=== PATIENT | male | born 1950 | race Caucasian/White ===

== ENCOUNTER 2024-04-12 11:48 | Inpatient (IN) | payer MEDICARE, SELFPAY ==
[2024-04-07] VITALS (11 sets, daily range): BP systolic 145–197; BP diastolic 92–110; BMI 34.7; BMI 34.9
--- NOTE | 2024-04-07 12:01 | ED.GENMED ---
History of Present Illness
General
Chief Complaint: Abnormal Lab Value
Source: patient
Exam Limitations: none
Time Seen by Provider: 04/07/24 11:36
Nursing documentation reviewed up to this point in time: agreed with
History of Present Illness
History of Present Illness:
73 y/o M with h/o htn, hld, prostate ca s/p radiation 5 yeras ago
here with abnormal labs
Patient had routine blood work in July 2023 showing a creatinine of 1.49. He went for routine blood work 6 days ago to prepare for a upcoming annual visit and his creatinine resulted at 3.28. Patient says he believes he is voiding
appropriately, he does have frequency but that is been common since his surgery. he apparently has been seen by dr. goodwin for trouble draining the bladder, maybe a stricture or somethign? but he did not have any treatment
pt says he has been ahving urinary frequency for while but he feels that he does empty his bladder
he has no pain
no confusoin, fever, fatigue, weakness, vomting, nauesa, diarrhea
is eating/drinking normaloly
pcp sent him in for w/.u
stopped his HCTZ
Past History
Past History
ED Past Medical History: Other
ED Past Surgical History: Other
Social History
Tobacco: Other
Alcohol: Other
Drug: Other
Personal: Other
Employment: Other
Family History
Family History: Unable to obtain
Review of Systems
Review of Systems
Allergies reviewed?: Yes
All Other Systems: Not applicable
Phy Exam
Physical Exam
Physical Exam:
GENERAL: Alert , in no apparent distress
EYE: pupils equal and reactive
NECK: Supple
ENT: o/p clr, mmm.
CARDIAC: Regular rate and rhythm . mild b/l ankle edema, nonpitting
LUNGS: Clear breath sounds bilaterally, no acute respiratory distress, no wheezes/rales/rhonchi
ABDOMEN: Soft, without focal tenderness, no r/g, no cvat, normal bowel sounds
NEUROLOGICAL: Alert and oriented, no focal neuro deficits
SKIN: Warm and dry, skin intact.
MUSCULOSKELETAL: mild edema, well perfused. neg syeda's sign
PSYCH: Normal and appropriate interaction.
Course
Orders/Labs/Results
Orders:
Orders
04/07/24 12:01
Electrocardiogram (*1) Urgent
Reason for Study: Other
Other Reason for Exam: arf
EKG- Treatment ONCE
04/07/24 12:02
CT Abd/pel Without Iv Or Oral Urgent
Comment:
Reason For Exam: ARF, h/o prostate cancer
04/07/24 12:08
BNP [NT-proBNP] Urgent
Complete Blood Count/With Diff Urgent
Comprehensive Metabolic Panel Urgent
04/07/24 13:05
Spence Placement- Treatment ONCE
Reason for insertion: Acute Kidney Injury
04/07/24 13:59
UA Reflex to Culture [Urinalysis Reflex To Culture] Urgent
Date Specimen was Collected: 04/07/24
Time Specimen was Collected: 13:58
Urine Microscopic Reflex Cult Urgent
Urine Culture Urgent
AMA Source: U
Specimen Description:
Date Specimen was Collected: 04/07/24
Time Specimen was Collected: 13:58
04/07/24 15:07
HydrALAZINE [Apresoline] 10 mg IV NOW STA
04/07/24 15:52
UROLOGY CONSULT Routine
Consulting Provider: Ricky Patino
Was physician already notified: Yes
Comment: Sees [facility] out[facility], DAVID, obstruction
04/07/24 15:56
Admit/Transfer Patient As Directed
Co-Sign Provider:
Level of Care: Observation services
Assign to:: Telemetry
Physician / Group: Dr. Joe Radha/Hospitalists
Diagnosis: Acute Kidney Injury, Urinary Obstruction
Reason for Telemetry: Arrhythmia
Date to Stop Telemetry: 04/10/24
Time to Stop Telemetry: 11:00
PRN Pain Medication Management As Directed
May give lesser potent ordered pain med per pt: Yes
preference::
Protocol:: Medication orders for pain may be administered in a
manner that supports deferring to patient preference
when the pt is:
- Requesting an ordered lesser potent pain medication.
Least to most potent pain medications are defined
as: acetaminophen < NSAID < tramadol < opioids
(morphine, oxycodone, hydromorphone).
- Requesting a lesser dose of the same medication IF
ORDERED.
- Requesting a less intrusive route of administration
if both routes are prescribed by the provider (PO <
IV).
04/07/24 15:57
Code Status As Directed
Resuscitation Status: Full Code
04/07/24 16:50
Blood Culture Urgent
AMA Source: Blood/Venous
Specimen Description:
04/10/24 11:00
DC Protocol for Telemetry ONCE
Abnormal Lab Results
04/07/24 04/07/24
12:08 13:59
RBC 3.44 L 10^6/uL
(4.70-6.10)
Hgb 11.0 L g/dL
(13.0-18.0)
Hct 32.1 L %
(39.0-52.0)
MCH 32.0 H pg
(27.0-31.0)
Absolute Lymphs (auto) 0.7 L 10^3/uL
(1.2-3.4)
Absolute Monos (auto) 0.7 H 10^3/uL
(0.1-0.6)
Lymphocytes % 12.2 L %
(20.5-51.1)
Monocytes % 11.2 H %
(1.7-9.3)
BUN 58 H mg/dl
(9-20)
Creatinine 3.2 H mg/dL
(0.7-1.3)
Ur Occult Blood Reflex Trace A
(Negative)
Leukocyte Esterase Rfl 2+ A
(Negative)
Urine WBC (Reflex) 30-40 A /HPF
(0-5)
Urine Bacteria (Reflex) Few A
(Negative)
04/07/24 12:08
04/07/24 12:08
Vital Signs
Initial and Last Documented VS:
Initial Vital Signs
Temp Pulse Resp BP Pulse Ox
98.4 F 52 18 197/109 99
04/07/24 11:07 04/07/24 11:07 04/07/24 11:07 04/07/24 11:07 04/07/24 11:07
Last Documented Vital Signs
Temp Pulse Resp BP Pulse Ox
98.4 F 70 22 179/99 99
04/07/24 11:07 04/07/24 16:30 04/07/24 16:30 04/07/24 16:00 04/07/24 16:30
MDM/Problems Addressed
Differential Diagnosis Includes:
arf, bladder outlet obstruction/urinary retention, uti, hydro,
MDM/Problems Addressed:
mohit lei 73 y/o M treated with radiation for prostate ca 5 years ago or so
here with renal failure; cr in 07/2023 was 1.4, today is 3.2
still waiting on urine for PVR; ct shows mod bilateral hydronephrosis and ureter with distended bldder which is thickened and with a large bladder diverticulum;
spence placed
urology aware;
*Critical Care Note
Total Time (30-74mins, 75-104mins- exclusive of procedures): Not Applicable
ED Attending Note
-
Portions of this chart may have been created with voice recognition software.� Occasional wrong word or��sound alike� substitutions may have occurred due to the inherent limitations of voice recognition software.
Discharge Plan
Departure
Patient Disposition: Admit
Date of Disposition: 04/07/24
Time of Disposition: 13:03
Admit to: Med/Surg
Presentation/result/management discussed w/ accepting MD/DO: Hospitalist
Condition: Good
Covid-19: Not Applicable
Discharge Problem:
Acute renal failure
Interventions
Interventions:
*Risk Screen - Suicide Last Done: 04/07/24 11:07
*General Assessment Last Done: 04/07/24 11:07
*Neglect/Abuse Screening Last Done: 04/07/24 11:07
ED- Fall Risk Assessment Last Done: 04/07/24 11:55
*ED COVID-19 Vaccine History Last Done: 04/07/24 11:55
*Nursing Disposition Last Done: 04/07/24 17:16
Discharge Date and Time
Discharge Date/Time: 04/07/24 17:17
[2024-04-07 12:31] LABS: % Basophils 0.8 % (0-2); % Eosinophils 2.5 % (0-6); % Immature Granulocytes 0.3 % (0-0.5); % Lymphocytes 12.2 % (20.5-51.1); % Monocytes 11.2 % (1.7-9.3); Absolute Basophils 0.1 10^3/uL (0-0.2); Absolute Eosinophils 0.2 10^3/uL (0-0.7); Absolute Lymphocytes 0.7 10^3/uL (1.2-3.4); Absolute Monocytes 0.7 10^3/uL (0.1-0.6); Absolute Neutrophils 4.4 10^3/uL (1.4-6.5); Hematocrit 32.1 % (39.0-52.0); Mean Corp Hgb Conc. 34.3 g/dL (33.0-37.0); Mean Corpuscular Volume 93.3 fL (80.0-94.0); Mean Platelet Volume 10.1 fL (7.4-10.4); Nucleated Red Blood Cells % 0 % (-); Platelet Count 223 10^3/uL (130-400); Red Blood Cell Count 3.44 10^6/uL (4.70-6.10); Red Cell Dist. Width 13.2 % (11.5-14.5); White Blood Cell Count 6.1 10^3/uL (4.8-10.8)
[2024-04-07 12:40] LABS: ALT (SGPT) 13 U/L (0-50); AST (SGOT) 22 U/L (17-59); Albumin 4.2 g/dl (3.5-5.0); Alkaline Phosphatase 67 U/L (38-126); Blood Urea Nitrogen 58 mg/dl (9-20); Calcium 9.4 mg/dl (8.4-10.2); Carbon Dioxide 27 mmol/L (22-30); Chloride 106 mmol/L (98-107); Estimated Creatinine Clearance 23 ml/min; Glucose 98 mg/dl (70-99); Potassium 4.6 mmol/L (3.5-5.1); Sodium 139 mmol/L (135-145); Total Bilirubin 0.4 mg/dl (0.2-1.3); Total Protein 6.4 g/dl (6.3-8.2); eGFR 19.68
[2024-04-07 12:49] LABS: NT-proBNP 1190 pg/ml
[2024-04-07 15:10] LABS: Urine Albumin Negative (Neg - Trace); Urine Bilirubin Negative (Negative); Urine Character Clear (Clear); Urine Color Yellow; Urine Glucose Negative (Negative); Urine Ketone Negative (Negative); Urine Leukocyte 2+ (Negative); Urine Nitrite Negative (Negative); Urine Occult Blood Trace (Negative); Urine Urobilinogen Negative (Neg - 1+)
--- NOTE | 2024-04-07 15:37 | HPS.HSE ---
Family Physician
-
Family Physician: Boy Richardson
Chief Complaint
-
Worsening renal function on outpatient labwork
History of Present Illness
73 y/o male with past medical history of hypertension, hyperlipidemia, stroke in 2016, prostate cancer 5 years ago (follows with urologist Dr. Moreno), presented after worsening renal function on his labwork. Patient went for routine blood work
several days ago to prepare for a upcoming annual visit and his creatinine resulted at 3.28. Patient says he believes he is voiding appropriately, he does have frequency and no new symptoms. His daughter was present in the room and said patient had
chronic shortness of breath on exertion and chronic lower extremity edema. He denied any fever or chills or abdominal pain.
Medical History
Past Medical History
Past Medical History: Reports Other (As per HPI above)
Past Surgical History: Reports Other
Social History
Tobacco: Former Smoker
Alcohol: Daily
Drug: None
Family History
Family History: Hypertension
Allergies / Home Medications
Allergies reflects when Allergies were last updated in [employer].
Home Medications with original date entered in [employer]
Allergy/Medication List:
Allergies
Allergy/AdvReac Type Severity Reaction Status Date / Time
No Known Allergies Allergy Verified 04/07/24 11:06
Home Medications
metoprolol succinate 25 mg tablet,extended release 24 hr (Toprol XL) 25 mg PO DAILY 04/07/24
red yeast rice 600 mg tablet 1,200 mg PO BID 04/07/24
Review of Systems
-
A 12 point ROS was completed and negative except as noted: Yes
Physical Exam
Vital Signs
Vital Signs
Temp Pulse Resp BP Pulse Ox
98.4 F 53 18 180/92 98
04/07/24 11:07 04/07/24 14:00 04/07/24 14:00 04/07/24 14:00 04/07/24 14:00
Physical Exam
General: No Apparent Distress and Conversant
HEENT: NormoCephalic and Moist mucous membranes
Respiratory: Clear
Cardiac: S1/S2 and Regular Rhythm
GI: Soft and Non Tender
Genito-urinary: Brunner
Musculoskeletal: Edema, Left Lower Extremity and Edema, Right Lower Extremity
Skin: Warm and Dry
Neuro: Awake, Alert and AO x 3
Psych: Calm and Intact Judgment/Insight
Laboratory Results
-
04/07/24 12:08
04/07/24 12:08
Laboratory Results
Total Bilirubin 0.4 mg/dl (0.2-1.3) 04/07/24 12:08
AST 22 U/L (17-59) 04/07/24 12:08
ALT 13 U/L (0-50) 04/07/24 12:08
Alkaline Phosphatase 67 U/L (38-126) 04/07/24 12:08
Impression/Plan
-
Assessment/Plan
Acute Kidney Injury, Secondary to Obstruction
Bilateral hydronephrosis and hydroureter with significantly distended urinary bladder
Thickened and trabeculated bladder with large posterior bladder diverticulum
Prostate cancer 5 years ago (follows with urologist Dr. Moreno)
-Continue Brunner Catheter
-Consult urology, recommendations appreciated
-Consult nephrology, recommendations appreciated
-No leukocytosis or fever, monitor for any signs of infection in which case Rocephin can be started
-Bladder scans protocol
-AM labs
Hypertension
-Continue home Metoprolol Succinate
-Add Amlodipine
-Per patient's daughter, patient was noted to be on Enalapril Maleate 20 mg BID and HCTZ 25 mg daily (stopped) at home
-Hold Enalapril for now
Bilateral Lower Extremity Edema
-Albumin okay
-Will check lower extremity duplex
-Given SOB reported will check echo
Hyperlipidemia
Stroke in 2016
Prostate cancer 5 years ago (follows with urologist Dr. Moreno)
Alcohol Use
-MSAS protocol
DVT PPx: Heparin Subq
Code Status: Full Code
[2024-04-07 15:42] LABS: Urine Bacteria Few (Negative); Urine Red Blood Cell 0-2 /HPF (0-2); Urine Squamous Cell 0-2 /LPF (Few); Urine White Cell 30-40 /HPF (0-5)
[2024-04-07] MEDS: APRESOLINE 10 MG IV (15:43)
--- NOTE | 2024-04-07 17:56 | W.PN.URO.CBU ---
Today's Communication / Plan
-
Keep Brunner
Follow BMP
Patient with benefit from videourodynamics +/- repeat cystsocopy as outpatient
Have advised patient and family he will be discharged home with his Brunner
Assessment / Plan
-
DAVID
Probable obstructive uropathy
Urine incontinence
Bladdder diverticulum
Prostate cancer
Diagnosis
-
Date of Service: April 07, 2024
-
Patient Diagnosis:
DAVID likely due to obstructive uropathy: 1.1 liters of urine recovered from bladder when catheter was initially placed, with an additional 900 ml recovered shortly thereafter: Creatinine 3.2 (no acidosis or hyperkalemia)
CT scan reveals a markedly distended urinary bladder with posterior diverticulum and marked bilateral hydroureteronephrosis
---
Urine incontinence: likely overflow
Cystoscopy 09/13 revealed a globally trabeculated urinary bladder. No clear evidnece of bladder outlet obstruction was evident ([facility])
---
Prostate cancer s/p radiation therapy roughly five years ago (this facility)
Subjective
-
Comfortable
Little catheter bother
Objective
-
Vital Signs
Temp Pulse Resp BP Pulse Ox
98.4 F 70 22 179/99 99
04/07/24 11:07 04/07/24 16:30 04/07/24 16:30 04/07/24 16:00 04/07/24 16:30
Intake and Output
04/06/24 04/07/24 04/08/24
06:59 06:59 06:59
Output Total 900 / 900
Balance -900 / -900
Output:
Urine, Brunner 900 / 900
Laboratory Results
04/07/24 12:08
04/07/24 12:08
CT scan reveals a markedly distended urinary bladder with bilateral hydroureteronephrosis: images personally reviewed
Review of Systems
-
Constitutional: No Symptoms
Respiratory: No Symptoms
Cardiac: No Symptoms
Abdomen/GI: No Symptoms
: Incontinence and Urgency
Neurological: No Symptoms
Physical Exam
-
General - well developed, well nourished, no acute distress
Abdomen - soft, non-tender, bladder non-palpable
Genitalia - normal with Brunner draining ovidio urine
Neuro - AOx3, no motor deficits
Counseling
-
Continue catheter drainage
Follow BMP
Re-image should DAVID not resolve
[2024-04-07] MEDS: NORVASC 5 MG PO (18:14)
[2024-04-07] MEDS: DETROL LA 4 MG PO (19:55)
[2024-04-07] MEDS: HEPARIN 5000 UNITS SC (19:55)
--- NOTE | 2024-04-07 21:30 | PTCARENOTE ---
Pt reports mild pain in his groin and difficulty sleeping. [facility] [employer] Negrete notified, order placed for 1x Tylenol 1000mg and 1x melatonin 5mg HS.
[2024-04-07] MEDS: TYLENOL 1000 MG PO (21:56)
[2024-04-07] MEDS: MELATONIN 5 MG PO (21:56)
[2024-04-08] VITALS (9 sets, daily range): BP systolic 122–155; BP diastolic 76–98; PULSE 59; O2SAT 97
[2024-04-08 08:10] LABS: % Basophils 0.6 % (0-2); % Immature Granulocytes 0.3 % (0-0.5); % Lymphocytes 10.7 % (20.5-51.1); % Monocytes 11.1 % (1.7-9.3); % Neutrophils 74.3 % (42.2-75.2); Absolute Eosinophils 0.2 10^3/uL (0-0.7); Absolute Lymphocytes 0.8 10^3/uL (1.2-3.4); Absolute Monocytes 0.8 10^3/uL (0.1-0.6); Absolute Neutrophils 5.4 10^3/uL (1.4-6.5); Hematocrit 33.1 % (39.0-52.0); Hemoglobin 11.5 g/dL (13.0-18.0); Mean Corp Hgb Conc. 34.7 g/dL (33.0-37.0); Mean Corpuscular Hgb 31.4 pg (27.0-31.0); Mean Corpuscular Volume 90.4 fL (80.0-94.0); Mean Platelet Volume 10.3 fL (7.4-10.4); Nucleated Red Blood Cells % 0 % (-); Platelet Count 243 10^3/uL (130-400); Red Blood Cell Count 3.66 10^6/uL (4.70-6.10); Red Cell Dist. Width 13.2 % (11.5-14.5); White Blood Cell Count 7.2 10^3/uL (4.8-10.8)
[2024-04-08] MEDS: NORVASC 5 MG PO (08:26)
[2024-04-08] MEDS: TOPROL XL 25 MG PO (08:26)
[2024-04-08] MEDS: DETROL LA 4 MG PO (08:26)
[2024-04-08] MEDS: HEPARIN 5000 UNITS SC ×2 (08:27→19:42)
[2024-04-08 08:43] LABS: Blood Urea Nitrogen 53 mg/dl (9-20); Calcium 9.3 mg/dl (8.4-10.2); Carbon Dioxide 25 mmol/L (22-30); Chloride 106 mmol/L (98-107); Estimated Creatinine Clearance 23 ml/min; Glucose 90 mg/dl (70-99); Magnesium 1.7 mg/dl (1.6-2.3); Potassium 4.2 mmol/L (3.5-5.1); Sodium 138 mmol/L (135-145); eGFR 20.44
--- NOTE | 2024-04-08 11:00 | W.PN.URO.CBU ---
Today's Communication / Plan
-
continue present care
Assessment / Plan
-
DAVID
Probable obstructive uropathy
Urine incontinence
Bladdder diverticulum
Prostate cancer spoke with daisy ernstxpalined creatinine and bladder waas hoping to see lower creatinine than 3.1 today but plan serial bmp friday but if crfeatine does not drop siignificamtly will need reimaging with u/s bladder/ renal
Diagnosis
-
Date of Service: April 08, 2024
-
Patient Diagnosis:
Post Op Day:
Patient Diagnosis:
DAVID likely due to obstructive uropathy: 1.1 liters of urine recovered from bladder when catheter was initially placed, with an additional 900 ml recovered shortly thereafter: Creatinine 3.2 (no acidosis or hyperkalemia)
CT scan reveals a markedly distended urinary bladder with posterior diverticulum and marked bilateral hydroureteronephrosis
---
Urine incontinence: likely overflow
Cystoscopy 09/13 revealed a globally trabeculated urinary bladder. No clear evidnece of bladder outlet obstruction was evident ([facility])
---
Prostate cancer s/p radiation therapy roughly five years ago (this facility)
Subjective
-
hematuria mild feels well
Objective
-
Vital Signs
Temp Pulse Resp BP Pulse Ox
97.8 F 61 18 146/81 98
04/08/24 10:26 04/08/24 10:26 04/08/24 10:26 04/08/24 10:26 04/08/24 10:26
Intake and Output
04/07/24 04/08/24 04/09/24
06:59 06:59 06:59
Intake Total 480 / 480
Output Total 3200 / 3200
Balance -2720 / -2720
Intake:
Oral fluids 480 / 480
Output:
Urine, Brunner 3200 / 3200
Laboratory Results
04/08/24 07:24
04/08/24 07:24
Review of Systems
-
: Bleeding
Musculoskeletal: Edema
Physical Exam
-
General - well developed, well nourished, no acute distress
Chest - clear bilaterally
Abdomen - soft, non-tender, positive bowel sounds, no CVAT, no incisional pain or distention
Genitalia - normal
Rectal - normal
Skin - warm & dry with no rash
Neuro - AOx3, no motor deficits
Extremities - no clubbing, no cyanosis, no edema
Incision - clean, dry
Dressing - clean, dry, intact
Care Review
Data Reviewed
Discussed with: Nursing and Family
CT Scan: Image Pers Reviewed
Ultrasound: Image Pers Reviewed
--- NOTE | 2024-04-08 11:42 | W.PN.HOSP.TC ---
Today's Communication/Plan
-
Continue Brunner Catheter
Nephrology consulted given minimal improvement in creatinine -- patient was taking Enalapril at home
Assessment / Plan
Assessment / Plan
Physical Exam
General: No Apparent Distress and Conversant
HEENT: Normocephalic
Respiratory: CTAB
Cardiac: S1/S2 and Regular Rhythm
GI: Soft and Non Tender. Positive bowel sounds.
Genito-urinary: Brunner
Musculoskeletal: Edema, Left Lower Extremity and Edema, Right Lower Extremity
Skin: Warm and Dry
Neuro: Awake, Alert and AO x 3
Psych: Calm and Intact Judgment/Insight

CT Abdomen Pelvis (as per radiologist's report)
IMPRESSION:
1. Moderate bilateral hydronephrosis and hydroureter with significantly distended urinary bladder which is thickened and trabeculated with large posterior bladder diverticulum. No obstructing stones or soft tissue lesions appreciated. Findings
consistent with bladder outlet obstruction.
2. Mildly enlarged prostate gland with projection of median lobe into the bladder base. No suspicious osteoblastic lesions appreciated. No pelvic lymphadenopathy.
3. Severe degenerative disc disease at L5-S1 with grade 1 anterolisthesis secondary to bilateral pars defects.
4. Additional findings above.
Echocardiogram (as per cardiology report)
CONCLUSIONS
Normal biventricular size and systolic function without regional wall motion
abnormality. Estimated LVEF 60-65%.
Moderate concentric left ventricular hypertrophy.
Mild aortic regurgitation.
Compared to 11/11/17: no significant change.

Assessment/Plan
Acute Kidney Injury, Secondary to Obstruction
Bilateral hydronephrosis and hydroureter with significantly distended urinary bladder
Thickened and trabeculated bladder with large posterior bladder diverticulum
Prostate cancer 5 years ago (follows with urologist Dr. Moreno)
-Continue Brunner Catheter
-Consult urology, recommendations appreciated
-Consult nephrology, recommendations appreciated
-No leukocytosis or fever, monitor for any signs of infection in which case Rocephin can be started
-Bladder scans protocol
-AM labs
-Consulted nephrology given lack of significant improvement in creatinine
Hypertension -- Blood Pressure Improved
-Continue home Metoprolol Succinate
-Add Amlodipine
-Per patient's daughter, patient was noted to be on Enalapril Maleate 20 mg BID and HCTZ 25 mg daily (stopped) at home
-Hold Enalapril for now
Bilateral Lower Extremity Edema
-Albumin okay
-No DVT
-Given SOB reported checked echocardiogram, results are above
Hyperlipidemia
Stroke in 2016
Prostate cancer 5 years ago (follows with urologist Dr. Moreno)
Alcohol Use
-MSAS protocol
Chronic moderate compression deformity of L1. Severe degenerative disc disease at L5-S1 secondary to bilateral pars defects. Grade 1 anterolisthesis
12 mm cyst within the inferior right lobe
DVT Prophylaxis: Heparin Subq
Code Status: Full Code
Anticipated Discharge: > 48 hours
Subjective/Interval History
-
Date of Service: April 08, 2024
Patient was seen and examined. He reported doing okay, denied any new symptoms or complaints.
Objective Data
-
Labs:
Laboratory Results
04/08/24
07:24
WBC 7.2
Hgb 11.5 L
Hct 33.1 L
Plt Count 243
Sodium 138
Potassium 4.2
Chloride 106
Carbon Dioxide 25
BUN 53 H
Creatinine 3.1 H
Glucose 90
Calcium 9.3
Vital Signs:
Vital Signs
Temp Pulse Resp BP Pulse Ox
97.8 F 61 18 146/81 98
04/08/24 10:26 04/08/24 10:26 04/08/24 10:26 04/08/24 10:26 04/08/24 10:26
I&O
04/07/24 04/08/24 04/09/24
06:59 06:59 06:59
Intake Total 480 / 480
Output Total 3200 / 3200
Balance -2720 / -2720
--- NOTE | 2024-04-08 11:56 | CM ---
Patient seen bedside with , initial assessment completed. Patient resides with in a two story home with a first floor set up, three steps to enter from back of house. Patient has a cane at home but reports he does not use it. Patient denies
VN or SNF in past. Patient reports he does not want VN. Patient confirms PCP Boy Richardson, pharmacy [facility], confirms prescription coverage. Patient denies food, housing/utility, transportation insecurities at home. DSOUZA reviewed, signed,
placed in chart. CM will continue to follow for all discharge planning needs.
Plan; home no needs, patient declining VN at this time.
--- NOTE | 2024-04-08 13:27 | W.CON.NEPH ---
Consultation
-
Date/Time Consultation Requested: April 08, 2024 11 AM
Date/Time Consultation Performed: April 08, 2024 1 PM
Requesting Provider: Dr. Garcia
Performing Provider: Dr. Baker
Reason for Consultation: DAVID
Medical History
-
Chief Complaint: DAVID
History of Present Illness:
This is a 73-year-old gentleman who has hypertension previously treated with metoprolol and enalapril. He has had no issues with these medications and his pressures have been stable. He does have hyperlipidemia though this is stable on red yeast
rice alone. He did have a history of prostate cancer 5 years ago but this is also been stable and followed by urology as an outpatient. He was last seen as an outpatient by Dr. Moreno in December. He had blood work just last with his
primary care physician and this showed a creatinine of 3.28 and for this he was sent to emergency room. In the emergency room he had a CAT scan which had shown severe bilateral hydronephrosis. A catheter was placed with return of 1.9 L of urine.
Today, his creatinine has remained elevated at 3.1 however and we are asked to assist with further management of his acute kidney injury. He says that he has had no issues with his medications including enalapril as an outpatient.
Past Medical History
Hypertension, prostate cancer, stroke, hyperlipidemia
Social History
Tobacco: Former Smoker
Alcohol: Daily
Family History
Family History: Not Pertinent
Allergies / Home Medications
Allergy/AdvReac Type Severity Reaction Status Date / Time
No Known Allergies Allergy Verified 04/07/24 11:06
�Medication �Instructions �Recorded �Confirmed �Type
metoprolol succinate 25 mg 25 mg PO DAILY Blood Pressure 04/07/24 04/07/24 History
tablet,extended release 24 hr
(Toprol XL)
red yeast rice 600 mg tablet 1,200 mg PO BID Supplement 04/07/24 04/07/24 History
Review of Systems
-
No chest pain or shortness of breath. No issues with urine output. No fever.
All other systems: Negative unless noted
Physical Exam
Vital Signs
Vital Signs
Temp Pulse Resp BP Pulse Ox
97.8 F 61 18 146/81 98
04/08/24 10:26 04/08/24 10:26 04/08/24 10:26 04/08/24 10:26 04/08/24 10:26
Lab Results
WBC 7.2 10^3/uL (4.8-10.8) 04/08/24 07:24
RBC 3.66 10^6/uL (4.70-6.10) L 04/08/24 07:24
Hgb 11.5 g/dL (13.0-18.0) L 04/08/24 07:24
Hct 33.1 % (39.0-52.0) L 04/08/24 07:24
Plt Count 243 10^3/uL (130-400) 04/08/24 07:24
Sodium 138 mmol/L (135-145) 04/08/24 07:24
Potassium 4.2 mmol/L (3.5-5.1) 04/08/24 07:24
Chloride 106 mmol/L (98-107) 04/08/24 07:24
Carbon Dioxide 25 mmol/L (22-30) 04/08/24 07:24
BUN 53 mg/dl (9-20) H 04/08/24 07:24
Creatinine 3.1 mg/dL (0.7-1.3) H 04/08/24 07:24
eGFR 20.44 04/08/24 07:24
Glucose 90 mg/dl (70-99) 04/08/24 07:24
Calcium 9.3 mg/dl (8.4-10.2) 04/08/24 07:24
Uul-A-Ixanvwtwnli Pept 1190 pg/ml 04/07/24 12:08
Albumin 4.2 g/dl (3.5-5.0) 04/07/24 12:08
Physical Exam
Patient is awake alert oriented and in no distress. Mood and affect were pleasant, insight and judgment were good. Pupils are equal round and reactive to light, extraocular movements are intact, sclera were anicteric. Hearing was normal, ears and
nose are intact. Oropharynx was clear. Neck was supple with trachea midline and no thyromegaly. Heart was regular rate and rhythm without rubs. Lower extremities without edema. Lungs were clear to auscultation bilaterally and with normal
excursion. Abdomen was soft, nontender, with normal active bowel sounds, and no hepatosplenomegaly. Skin was without rash and with normal turgor.
Data Reviewed
-
CT Scan: Report Reviewed by me (CT abdomen and pelvis without contrast on April 07, 2024 degenerative joint disease, bilateral hydronephrosis and hydroureter, large posterior bladder diverticulum)
Medical Tests (Nuc Med, Echo etc): Image Personally Visualized and interpreted (EKG on April 07, 2024 by my reading shows sinus bradycardia first-degree AV block) and Report Reviewed by me (Echocardiogram on April 08, 2024 shows ejection fraction 60%,
moderate concentric LVH)
Labs: Labs Reviewed by me (Hemoglobin 11.5, WBC 7.2, sodium 138, potassium 4.2, bicarbonate 25, BUN 53, creatinine 3.1, calcium 9.3)
Old Records: Reviewed (On August 02, 2024, creatinine 1.49)
Assessment/Plan
-
Assessment
Acute kidney injury
Urinary retention
Bilateral hydronephrosis
Hypertension
Traumatic gross hematuria
Plan
Follow BMP
Maintain Brunner
No MICHELLE inhibitors
Continue amlodipine and metoprolol for hypertension
It is entirely possible that the obstructive uropathy may have been present longer than felt. Therefore recovery after judaism of flow may be delayed due to either ATN or more severe renal injury.
--- NOTE | 2024-04-08 13:39 | PTCARENOTE ---
Spence teaching started with patient and . Verbal instruction provided with demonstration was able to demonstrate emptying spence independently. Will continue to document teaching.
[2024-04-08 14:26] LABS: Urine Sodium 88 mmol/L (30-90)
[2024-04-09 03:15] VITALS: BP 149/90
[2024-04-09 08:00] VITALS: BP 134/93
[2024-04-09 08:00] LABS: % Basophils 0.4 % (0-2); % Eosinophils 4.2 % (0-6); % Immature Granulocytes 0.4 % (0-0.5); % Lymphocytes 11.5 % (20.5-51.1); % Monocytes 12.3 % (1.7-9.3); % Neutrophils 71.2 % (42.2-75.2); Absolute Eosinophils 0.3 10^3/uL (0-0.7); Absolute Lymphocytes 0.9 10^3/uL (1.2-3.4); Absolute Neutrophils 5.7 10^3/uL (1.4-6.5); Hematocrit 34.4 % (39.0-52.0); Hemoglobin 11.9 g/dL (13.0-18.0); Mean Corp Hgb Conc. 34.6 g/dL (33.0-37.0); Mean Corpuscular Hgb 31.2 pg (27.0-31.0); Mean Corpuscular Volume 90.1 fL (80.0-94.0); Mean Platelet Volume 10.4 fL (7.4-10.4); Nucleated Red Blood Cells % 0 % (-); Platelet Count 251 10^3/uL (130-400); Red Blood Cell Count 3.82 10^6/uL (4.70-6.10); Red Cell Dist. Width 13.1 % (11.5-14.5)
[2024-04-09 08:20] LABS: Blood Urea Nitrogen 55 mg/dl (9-20); Calcium 9.4 mg/dl (8.4-10.2); Carbon Dioxide 23 mmol/L (22-30); Chloride 106 mmol/L (98-107); Estimated Creatinine Clearance 25 ml/min; Glucose 94 mg/dl (70-99); Potassium 4.3 mmol/L (3.5-5.1); Sodium 136 mmol/L (135-145); eGFR 22.15
[2024-04-09] MEDS: DETROL LA 4 MG PO (09:46)
[2024-04-09] MEDS: TOPROL XL 25 MG PO (09:46)
[2024-04-09] MEDS: HEPARIN 5000 UNITS SC ×2 (09:47→20:14)
[2024-04-09] MEDS: NORVASC 5 MG PO (09:47)
--- NOTE | 2024-04-09 10:45 | CM ---
Addendum entered by Kellie Sanchez 04/09/24 11:41:
Patient seen with , family agreeable to [facility] upon discharge. CM will update [facility] once patient is clear to discharge home.
Original Note:
Patient seen bedside, reports his will be in later this morning. CM faxed referral to [facility] ([phone]) for spence care. CM will continue to follow for all discharge planning needs.
Plan; home with VN.
--- NOTE | 2024-04-09 10:55 | W.PN.HOSP.TC ---
Today's Communication/Plan
-
Renal function very gradually improving -- appreciate urology and GI follow-up
Watch blood pressure and Hgb closely as patient is on Heparin DVT prophylaxis and Brunner is showing red urine
Assessment / Plan
Assessment / Plan
Physical Exam
General: No Apparent Distress and Conversant
HEENT: Normocephalic
Respiratory: CTAB
Cardiac: S1/S2 and Regular Rhythm
GI: Soft and Non Tender. Positive bowel sounds.
Genito-urinary: Brunner with red urine
Musculoskeletal: Edema, Left Lower Extremity and Edema, Right Lower Extremity
Skin: Warm and Dry
Neuro: Awake, Alert and AO x 3
Psych: Calm and Intact Judgment/Insight

CT Abdomen Pelvis (as per radiologist's report)
IMPRESSION:
1. Moderate bilateral hydronephrosis and hydroureter with significantly distended urinary bladder which is thickened and trabeculated with large posterior bladder diverticulum. No obstructing stones or soft tissue lesions appreciated. Findings
consistent with bladder outlet obstruction.
2. Mildly enlarged prostate gland with projection of median lobe into the bladder base. No suspicious osteoblastic lesions appreciated. No pelvic lymphadenopathy.
3. Severe degenerative disc disease at L5-S1 with grade 1 anterolisthesis secondary to bilateral pars defects.
4. Additional findings above.
Echocardiogram (as per cardiology report)
CONCLUSIONS
Normal biventricular size and systolic function without regional wall motion
abnormality. Estimated LVEF 60-65%.
Moderate concentric left ventricular hypertrophy.
Mild aortic regurgitation.
Compared to 11/11/17: no significant change.

Assessment/Plan
Acute Kidney Injury, Secondary to Obstruction
Bilateral hydronephrosis and hydroureter with significantly distended urinary bladder
Thickened and trabeculated bladder with large posterior bladder diverticulum
Prostate cancer 5 years ago (follows with urologist Dr. Moreno)
-Continue Brunner Catheter
-Consult urology, recommendations appreciated
-Consult nephrology, recommendations appreciated
-No leukocytosis or fever, monitor for any signs of infection in which case Rocephin can be started
-Bladder scans protocol
-AM labs
-Hold home Enalapril
-Consulted nephrology given lack of significant improvement in creatinine: it's entirely possible that the obstructive uropathy may have been present longer than felt and per nephrology therefore recovery after druze of flow may be delayed due
to either ATN or more severe renal injury
Hypertension -- Blood Pressure Improved
-Continue home Metoprolol Succinate
-Continue newly started Amlodipine
-Per patient's daughter, patient was noted to be on Enalapril Maleate 20 mg BID and HCTZ 25 mg daily (stopped) at home
-Hold Enalapril given impaired renal function
Bilateral Lower Extremity Edema
-Albumin okay
-No DVT
-Given SOB reported checked echocardiogram, results are above
Hyperlipidemia
Stroke in 2016
Prostate cancer 5 years ago (follows with urologist Dr. Moreno)
Alcohol Use
-MSAS protocol
Chronic moderate compression deformity of L1. Severe degenerative disc disease at L5-S1 secondary to bilateral pars defects. Grade 1 anterolisthesis
12 mm cyst within the inferior right lobe
DVT Prophylaxis: Heparin Subq
Code Status: Full Code
Anticipated Discharge: > 48 hours
Subjective/Interval History
-
Date of Service: April 09, 2024
Patient was seen and examined. He denied any new symptoms or complaints.
Objective Data
-
Labs:
Laboratory Results
04/09/24
07:25
WBC 8.0
Hgb 11.9 L
Hct 34.4 L
Plt Count 251
Sodium 136
Potassium 4.3
Chloride 106
Carbon Dioxide 23
BUN 55 H
Creatinine 2.9 H
Glucose 94
Calcium 9.4
Vital Signs:
Vital Signs
Temp Pulse Resp BP Pulse Ox
97.8 F 69 20 134/93 98
04/09/24 08:00 04/09/24 08:00 04/09/24 08:00 04/09/24 08:00 04/09/24 08:00
I&O
04/08/24 04/09/24 04/10/24
06:59 06:59 06:59
Intake Total 480 / 480 540 / 540
Output Total 3200 / 3200
Balance -2720 / -2720 540 / 540
[2024-04-09 11:04] VITALS: BP 143/92
--- NOTE | 2024-04-09 13:11 | W.PN.URO.CBU ---
Today's Communication / Plan
-
renal u/s ordered
Assessment / Plan
-
DAVID
Probable obstructive uropathy
Urine incontinence
Bladdder diverticulum
Prostate cancer spoke with daisy rodriguezined creatinine and bladder waas hoping to see lower creatinine than 32.9 today but plan serial bmp friday but if crfeatine does not drop siignificamtly will need reimaging with u/s renal
Diagnosis
-
Date of Service: April 09, 2024
-
Patient Diagnosis:
Post Op Day:
Patient Diagnosis:
Post Op Day:
Patient Diagnosis:
DAVID likely due to obstructive uropathy: 1.1 liters of urine recovered from bladder when catheter was initially placed, with an additional 900 ml recovered shortly thereafter: Creatinine 3.2 (no acidosis or hyperkalemia)
CT scan reveals a markedly distended urinary bladder with posterior diverticulum and marked bilateral hydroureteronephrosis
---
Urine incontinence: likely overflow
Cystoscopy 09/13 revealed a globally trabeculated urinary bladder. No clear evidnece of bladder outlet obstruction was evident (Flashner)
---
Prostate cancer s/p radiation therapy roughly five years ago (this facility)
Subjective
-
feels well
Objective
-
Vital Signs
Temp Pulse Resp BP Pulse Ox
97.8 F 69 20 134/93 98
04/09/24 08:00 04/09/24 08:00 04/09/24 08:00 04/09/24 08:00 04/09/24 08:00
Intake and Output
04/08/24 04/09/24 04/10/24
06:59 06:59 06:59
Intake Total 480 / 480 540 / 540
Output Total 3200 / 3200
Balance -2720 / -2720 540 / 540
Intake:
Oral fluids 480 / 480 540 / 540
Output:
Urine, Brunner 3200 / 3200
Laboratory Results
04/09/24 07:25
Review of Systems
-
: Difficulty Voiding
Physical Exam
-
General - well developed, well nourished, no acute distress
Chest - clear bilaterally
Abdomen - soft, non-tender, positive bowel sounds, no CVAT, no incisional pain or distention
Genitalia - normal
Rectal - normal
Skin - warm & dry with no rash
Neuro - AOx3, no motor deficits
Extremities - no clubbing, no cyanosis, no edema
Incision - clean, dry
Dressing - clean, dry, intact
Care Review
Data Reviewed
Discussed with: Family
[2024-04-09 15:00] VITALS: BP 159/89
--- NOTE | 2024-04-09 15:18 | W.PN.UPDATE ---
Update Note
Progress Note Update
Patient gone for renal ultrasound
spoke to patient's and daughter
we will await further imaging from uro
discussed that his renal recovery is slower than anticipated
[2024-04-09] MEDS: MIRALAX PO (16:27)
[2024-04-09] MEDS: TYLENOL 650 MG PO ×2 (16:35→22:40)
[2024-04-09 19:05] VITALS: BP 141/84
[2024-04-09 20:06] LABS: Hematocrit 32.5 % (39.0-52.0); Hemoglobin 11.6 g/dL (13.0-18.0)
[2024-04-09 23:00] VITALS: BP 136/90
[2024-04-10 03:00] VITALS: BP 145/94
[2024-04-10 07:36] VITALS: BP 165/94
[2024-04-10 09:05] LABS: % Basophils 0.7 % (0-2); % Eosinophils 6.4 % (0-6); % Immature Granulocytes 0.3 % (0-0.5); % Lymphocytes 11.2 % (20.5-51.1); % Monocytes 10.6 % (1.7-9.3); % Neutrophils 70.8 % (42.2-75.2); Absolute Basophils 0.1 10^3/uL (0-0.2); Absolute Eosinophils 0.5 10^3/uL (0-0.7); Absolute Lymphocytes 0.8 10^3/uL (1.2-3.4); Absolute Monocytes 0.8 10^3/uL (0.1-0.6); Absolute Neutrophils 5.2 10^3/uL (1.4-6.5); Hematocrit 35.7 % (39.0-52.0); Hemoglobin 12.6 g/dL (13.0-18.0); Mean Corp Hgb Conc. 35.3 g/dL (33.0-37.0); Mean Corpuscular Hgb 31.7 pg (27.0-31.0); Mean Corpuscular Volume 89.7 fL (80.0-94.0); Nucleated Red Blood Cells % 0 % (-); Red Blood Cell Count 3.98 10^6/uL (4.70-6.10); Red Cell Dist. Width 12.8 % (11.5-14.5); White Blood Cell Count 7.4 10^3/uL (4.8-10.8)
[2024-04-10 09:35] LABS: Blood Urea Nitrogen 57 mg/dl (9-20); Calcium 9.7 mg/dl (8.4-10.2); Carbon Dioxide 23 mmol/L (22-30); Chloride 104 mmol/L (98-107); Estimated Creatinine Clearance 27 ml/min; Glucose 97 mg/dl (70-99); Potassium 4.6 mmol/L (3.5-5.1); Sodium 137 mmol/L (135-145); eGFR 24.13
[2024-04-10] MEDS: TYLENOL 650 MG PO ×3 (10:29→22:06)
[2024-04-10] MEDS: MIRALAX PO (10:30)
--- NOTE | 2024-04-10 10:30 | W.PN.HOSP.TC ---
Today's Communication/Plan
-
Renal function gradually improving still in the high 2 range
Appreciate nephrology and urology follow-up
Assessment / Plan
Assessment / Plan
Physical Exam
General: No Apparent Distress and Conversant
HEENT: Normocephalic
Respiratory: CTAB
Cardiac: S1/S2 and Regular Rhythm
GI: Soft and Non Tender. Positive bowel sounds.
Genito-urinary: Brunner with red urine
Musculoskeletal: Edema, Left Lower Extremity and Edema, Right Lower Extremity
Skin: Warm and Dry
Neuro: Awake, Alert and AO x 3
Psych: Calm and Intact Judgment/Insight

CT Abdomen Pelvis (as per radiologist's report)
IMPRESSION:
1. Moderate bilateral hydronephrosis and hydroureter with significantly distended urinary bladder which is thickened and trabeculated with large posterior bladder diverticulum. No obstructing stones or soft tissue lesions appreciated. Findings
consistent with bladder outlet obstruction.
2. Mildly enlarged prostate gland with projection of median lobe into the bladder base. No suspicious osteoblastic lesions appreciated. No pelvic lymphadenopathy.
3. Severe degenerative disc disease at L5-S1 with grade 1 anterolisthesis secondary to bilateral pars defects.
4. Additional findings above.
Echocardiogram (as per cardiology report)
CONCLUSIONS
Normal biventricular size and systolic function without regional wall motion
abnormality. Estimated LVEF 60-65%.
Moderate concentric left ventricular hypertrophy.
Mild aortic regurgitation.
Compared to 11/11/17: no significant change.

Assessment/Plan
Acute Kidney Injury, Secondary to Obstruction
Bilateral hydronephrosis and hydroureter with significantly distended urinary bladder
Thickened and trabeculated bladder with large posterior bladder diverticulum
Prostate cancer 5 years ago (follows with urologist Dr. Moreno)
-Continue Brunner Catheter
-Consult urology, recommendations appreciated
-Consult nephrology, recommendations appreciated
-No leukocytosis or fever, monitor for any signs of infection in which case Rocephin can be started
-Bladder scans protocol
-AM labs
-Hold home Enalapril
-Consulted nephrology given lack of significant improvement in creatinine: it's entirely possible that the obstructive uropathy may have been present longer than felt and per nephrology therefore recovery after catholic of flow may be delayed due
to either ATN or more severe renal injury
Hypertension -- Blood Pressure Improved
-Continue home Metoprolol Succinate
-Continue newly started Amlodipine started this admission
-Per patient's daughter, patient was noted to be on Enalapril Maleate 20 mg BID and HCTZ 25 mg daily (stopped) at home
-Hold Enalapril given impaired renal function
Bilateral Lower Extremity Edema
-Albumin okay
-No DVT
-Given SOB reported checked echocardiogram, results are above
Hyperlipidemia
Stroke in 2016
Prostate cancer 5 years ago (follows with urologist Dr. Moreno)
Alcohol Use
-MSAS protocol
Chronic moderate compression deformity of L1. Severe degenerative disc disease at L5-S1 secondary to bilateral pars defects. Grade 1 anterolisthesis
12 mm cyst within the inferior right lobe
DVT Prophylaxis: Heparin Subq
Code Status: Full Code
Anticipated Discharge: 24 - 48 hours
Subjective/Interval History
-
Date of Service: April 10, 2024
Patient was seen and examined. He reported no new symptoms or complaints.
Objective Data
-
Labs:
Laboratory Results
04/10/24
08:05
WBC 7.4
Hgb 12.6 L
Hct 35.7 L
Plt Count Pending
Sodium 137
Potassium 4.6
Chloride 104
Carbon Dioxide 23
BUN 57 H
Creatinine 2.7 H
Glucose 97
Calcium 9.7
Vital Signs:
Vital Signs
Temp Pulse Resp BP Pulse Ox
98.7 F 63 20 165/94 96
04/10/24 07:36 04/10/24 07:36 04/10/24 07:36 04/10/24 07:36 04/10/24 07:36
I&O
04/09/24 04/10/24 04/11/24
06:59 06:59 06:59
Intake Total 540 / 540 120 / 120
Output Total 0 / 0
Balance 540 / 540 -2079 / -2079
[2024-04-10] MEDS: HEPARIN 5000 UNITS SC ×2 (10:31→20:08)
[2024-04-10] MEDS: TOPROL XL 25 MG PO (10:32)
[2024-04-10] MEDS: NORVASC 5 MG PO (10:32)
--- NOTE | 2024-04-10 10:50 | W.PN.NEPH.PH ---
Today's Communication / Plan
-
- trend BMP
Assessment/Plan
-
Assessment
Acute kidney injury
Urinary retention
Bilateral hydronephrosis
Hypertension
Traumatic gross hematuria
Plan
Follow BMP
Maintain Brunner
No MICHELLE inhibitors
Continue amlodipine and metoprolol for hypertension
It is entirely possible that the obstructive uropathy may have been present longer than felt. Therefore recovery after yarsani of flow may be delayed due to either ATN or more severe renal injury.
-
-
Date of Service: April 10, 2024
CC / HPI / ROS
-
Chief Complaint:
DAVID
History of Present Illness:
Cr peak 2.9, now down to 2.7. continuing Brunner cath
Review of Systems:
feeling improved
discomfort with urination
Labs
-
Labs:
WBC 7.4 10^3/uL (4.8-10.8) 04/10/24 08:05
RBC 3.98 10^6/uL (4.70-6.10) L 04/10/24 08:05
Hgb 12.6 g/dL (13.0-18.0) L 04/10/24 08:05
Hct 35.7 % (39.0-52.0) L 04/10/24 08:05
Sodium 137 mmol/L (135-145) 04/10/24 08:05
Potassium 4.6 mmol/L (3.5-5.1) 04/10/24 08:05
Chloride 104 mmol/L (98-107) 04/10/24 08:05
Carbon Dioxide 23 mmol/L (22-30) 04/10/24 08:05
BUN 57 mg/dl (9-20) H 04/10/24 08:05
Creatinine 2.7 mg/dL (0.7-1.3) H 04/10/24 08:05
eGFR 24.13 04/10/24 08:05
Glucose 97 mg/dl (70-99) 04/10/24 08:05
Calcium 9.7 mg/dl (8.4-10.2) 04/10/24 08:05
Sei-R-Vsazvxkxcyk Pept 1190 pg/ml 04/07/24 12:08
Albumin 4.2 g/dl (3.5-5.0) 04/07/24 12:08
Physical Exam
-
Vital Signs:
Vital Signs
Temp Pulse Resp BP Pulse Ox
98.7 F 63 20 165/94 96
04/10/24 07:36 04/10/24 07:36 04/10/24 07:36 04/10/24 07:36 04/10/24 07:36
Cardiovascular:: Regular rate and rhythm
Respiratory:: Bilateral: CTA
Lung Excursion:: Normal
Abdomen:: Nontender and Soft
Bowel Sounds:: Normal
Extremity Edema:: +1: Bilateral:
Brunner Catheter: Yes
[2024-04-10 11:23] VITALS: BP 143/92
[2024-04-10 11:34] LABS: Platelet Count 218 10^3/uL (130-400)
--- NOTE | 2024-04-10 12:55 | W.PN.URO.CBU ---
Today's Communication / Plan
-
CT to eval hydro
Trend hematuria
Assessment / Plan
-
73M hx of prostate cancer s/p radiation
DAVID likely due to acute on chronic obstructive uropathy'
Hematuria after catheter placement
Maintain spence
Renal US showed persistent moderate hydronephrosis 04/[address] to evaluate for any persistent ureteral obstruction but suspect this is residual dilation from resolving obstructive reflux
Hematuria stable, catheter draining
Irrigate PRN - patient refused irrigation today. Will eval how much clot visible on CT
Trend renal function
F/U nephrology recs
Diagnosis
-
Date of Service: April 10, 2024
-
Patient Diagnosis:
DAVID likely due to obstructive uropathy: 1.1 liters of urine recovered from bladder when catheter was initially placed, with an additional 900 ml recovered shortly thereafter: Creatinine 3.2 (no acidosis or hyperkalemia)
CT scan reveals a markedly distended urinary bladder with posterior diverticulum and marked bilateral hydroureteronephrosis
---
Urine incontinence: likely overflow
Cystoscopy 09/13 revealed a globally trabeculated urinary bladder. No clear evidnece of bladder outlet obstruction was evident (Flashner)
---
Prostate cancer s/p radiation therapy roughly five years ago (this facility)
Subjective
-
Hematuria persistent but spence draining
Some pain from catheter
Objective
-
Vital Signs
Temp Pulse Resp BP Pulse Ox
98.1 F 67 20 143/92 96
04/10/24 11:23 04/10/24 11:23 04/10/24 11:23 04/10/24 11:23 04/10/24 11:23
Intake and Output
04/09/24 04/10/24 04/11/24
06:59 06:59 06:59
Intake Total 540 / 540 120 / 120
Output Total 2199
Balance 540 / 540 -2079
Intake:
Oral fluids 540 / 540 120 / 120
Output:
Urine, Spence 2199
Laboratory Results
04/10/24 08:05
04/10/24 08:05
Physical Exam
-
General - well developed, well nourished, no acute distress
Chest - clear bilaterally
Abdomen - soft, non-tender
- spence in place, light red urine
Skin - warm & dry with no rash
Neuro - AOx3, no motor deficits
Extremities - no clubbing, no cyanosis, no edema
[2024-04-10 15:29] VITALS: BP 135/92
[2024-04-10] MEDS: TUMS 1 TABLET PO (17:10)
[2024-04-10 19:05] VITALS: BP 151/99
[2024-04-10 23:00] VITALS: BP 135/81
[2024-04-11] VITALS (7 sets, daily range): BP systolic 144–168; BP diastolic 93–110; PULSE 77; O2SAT 96
[2024-04-11] MEDS: TOPROL XL 25 MG PO (07:39)
[2024-04-11] MEDS: NORVASC 5 MG PO (07:40)
[2024-04-11] MEDS: HEPARIN 5000 UNITS SC ×2 (07:40→20:04)
[2024-04-11] MEDS: MIRALAX PO (07:41)
[2024-04-11 08:31] LABS: % Basophils 0.7 % (0-2); % Immature Granulocytes 0.5 % (0-0.5); % Lymphocytes 15.6 % (20.5-51.1); % Monocytes 13.7 % (1.7-9.3); % Neutrophils 59.5 % (42.2-75.2); Absolute Eosinophils 0.6 10^3/uL (0-0.7); Absolute Lymphocytes 0.9 10^3/uL (1.2-3.4); Absolute Monocytes 0.8 10^3/uL (0.1-0.6); Absolute Neutrophils 3.4 10^3/uL (1.4-6.5); Hematocrit 36.2 % (39.0-52.0); Hemoglobin 12.7 g/dL (13.0-18.0); Mean Corp Hgb Conc. 35.1 g/dL (33.0-37.0); Mean Corpuscular Hgb 32.1 pg (27.0-31.0); Mean Corpuscular Volume 91.4 fL (80.0-94.0); Mean Platelet Volume 10.5 fL (7.4-10.4); Nucleated Red Blood Cells % 0 % (-); Platelet Count 258 10^3/uL (130-400); Red Blood Cell Count 3.96 10^6/uL (4.70-6.10); Red Cell Dist. Width 12.6 % (11.5-14.5); White Blood Cell Count 5.7 10^3/uL (4.8-10.8)
[2024-04-11 08:49] LABS: Blood Urea Nitrogen 51 mg/dl (9-20); Calcium 9.7 mg/dl (8.4-10.2); Carbon Dioxide 26 mmol/L (22-30); Chloride 105 mmol/L (98-107); Estimated Creatinine Clearance 28 ml/min; Glucose 89 mg/dl (70-99); Potassium 4.6 mmol/L (3.5-5.1); Sodium 138 mmol/L (135-145); eGFR 25.25
--- NOTE | 2024-04-11 09:19 | CM ---
Chart reviewed and referral sent to [facility], will await determination to see if they will accept patient.
Plan: home when stable with home care.
[2024-04-11] MEDS: MIRALAX 17 GRAMS PO (09:34)
--- NOTE | 2024-04-11 10:19 | W.PN.HOSP.TC ---
Today's Communication/Plan
-
Cleared by nephrology and urology for discharge
However on April 11, 2024 I spoke over the phone to patient's daughter Tiffany, and Tiffany and her family requested to keep patient in the hospital until patient's creatinine improves at least to less than 2.5 in the low 2 to 3 range.
Assessment / Plan
Assessment / Plan
Physical Exam
General: No Apparent Distress and Conversant
HEENT: Normocephalic
Respiratory: CTAB
Cardiac: S1/S2 and Regular Rhythm
GI: Soft and Non Tender. Positive bowel sounds.
Genito-urinary: Spence with red urine
Musculoskeletal: Edema, Left Lower Extremity and Edema, Right Lower Extremity
Skin: Warm and Dry
Neuro: Awake, Alert and AO x 3
Psych: Calm and Intact Judgment/Insight

CT Abdomen Pelvis (as per radiologist's report)
IMPRESSION:
1. Moderate bilateral hydronephrosis and hydroureter with significantly distended urinary bladder which is thickened and trabeculated with large posterior bladder diverticulum. No obstructing stones or soft tissue lesions appreciated. Findings
consistent with bladder outlet obstruction.
2. Mildly enlarged prostate gland with projection of median lobe into the bladder base. No suspicious osteoblastic lesions appreciated. No pelvic lymphadenopathy.
3. Severe degenerative disc disease at L5-S1 with grade 1 anterolisthesis secondary to bilateral pars defects.
4. Additional findings above.
Echocardiogram (as per cardiology report)
CONCLUSIONS
Normal biventricular size and systolic function without regional wall motion
abnormality. Estimated LVEF 60-65%.
Moderate concentric left ventricular hypertrophy.
Mild aortic regurgitation.
Compared to 11/11/17: no significant change.

Assessment/Plan
Acute Kidney Injury, Secondary to Obstruction
Bilateral hydronephrosis and hydroureter with significantly distended urinary bladder
Hematuria
Thickened and trabeculated bladder with large posterior bladder diverticulum
Prostate cancer 5 years ago (follows with urologist Dr. Moreno)
-Continue Spence Catheter
-Consult urology, recommendations appreciated
-Consult nephrology, recommendations appreciated
-No leukocytosis or fever, monitor for any signs of infection in which case Rocephin can be started
-Bladder scans protocol
-Recheck labs outpatient
-Hold home Enalapril
-Consulted nephrology given lack of significant improvement in creatinine: it's entirely possible that the obstructive uropathy may have been present longer than felt and per nephrology therefore recovery after jehovah's witness of flow may be delayed due
to either ATN or more severe renal injury
-Per urology, patient is stable for discharge from standpoint with spence in place and outpatient follow up with Dr. Moreno to discuss repeat imaging and possible prostate intervention
-repeat CT imaging on 04/10/24 showed bilateral hydronephrosis is stable and not due to any stone or other external compression
-Discussed with urologist Dr. Houston, patient's hematuria is decompression hematuria most likely; Dr. Houston wanted to irrigate his bladder yesterday, but patient would not let him but per Dr. Houston, the spence catheter is draining fine and there
wasn�t clot on the CT imaging so it�s OK, and patient can be discharged.
Hypertension -- Blood Pressure Improved
-Continue home Metoprolol Succinate
-Continue newly started Amlodipine started this admission
-Per patient's daughter, patient was noted to be on Enalapril Maleate 20 mg BID and HCTZ 25 mg daily (stopped) at home
-Hold Enalapril given impaired renal function
Bilateral Lower Extremity Edema
-Albumin okay
-No DVT
-Given SOB reported checked echocardiogram, results are above
Hyperlipidemia
Stroke in 2016
Prostate cancer 5 years ago (follows with urologist Dr. Moreno)
Alcohol Use
-MSAS protocol
Chronic moderate compression deformity of L1. Severe degenerative disc disease at L5-S1 secondary to bilateral pars defects. Grade 1 anterolisthesis
12 mm cyst within the inferior right lobe
DVT Prophylaxis: Heparin Subq
Code Status: Full Code
salesperson [employer] for patient: patient's daughter Tiffany - phone number [phone] -- main contact persons are patient's daughters (phone numbers will be added to patient's chart)
On April 11, 2024 I spoke over the phone to patient's daughter Tiffany, and Tiffany and her family requested to keep patient in the hospital until patient's creatinine improves at least to less than 2.5 in the low 2 to 3 range.
Anticipated Discharge: Within 24 hours
Subjective/Interval History
-
Date of Service: April 11, 2024
Patient was seen and examined. He denied any new symptoms or complaints.
Objective Data
-
Labs:
Laboratory Results
04/11/24
06:41
WBC 5.7
Hgb 12.7 L
Hct 36.2 L
Plt Count 258
Sodium 138
Potassium 4.6
Chloride 105
Carbon Dioxide 26
BUN 51 H
Creatinine 2.6 H
Glucose 89
Calcium 9.7
Vital Signs:
Vital Signs
Temp Pulse Resp BP Pulse Ox
97.7 F 74 16 156/96 97
04/11/24 07:00 04/11/24 07:39 04/11/24 07:00 04/11/24 07:39 04/11/24 07:00
I&O
04/10/24 04/11/24 04/12/24
06:59 06:59 06:59
Intake Total 120 / 120 1200 / 1200
Output Total 2200 / 2200 2700 / 2700
Balance -2080 / -2080 -1500 / -1500
--- NOTE | 2024-04-11 11:08 | W.PN.URO.CBU ---
Today's Communication / Plan
-
Stable for discharge from standpoint with spence in place
Outpatient follow up with Dr. Moreno to discuss repeat imaging and possible prostate intervention
Assessment / Plan
-
73M hx of prostate cancer s/p radiation
DAVID likely due to acute on chronic obstructive uropathy'
Hematuria after catheter placement
Maintain spence
CT 04/10 showed persistent bilateral hydronephrosis. This is likely residual dilation from resolving bladder outlet obstruction. Recommend repeat imaging in a few weeks - may eventually need cystoscopy and evaluation of ureters if it persists
Hematuria stable, catheter draining
Irrigate PRN while inpatient - patient refused irrigation again today but no clot was visible on CT
Trend renal function
F/U nephrology recs
Stable for discharge from standpoint
Diagnosis
-
Date of Service: April 11, 2024
-
Patient Diagnosis:
Post Op Day:
Patient Diagnosis:
DAVID likely due to obstructive uropathy: 1.1 liters of urine recovered from bladder when catheter was initially placed, with an additional 900 ml recovered shortly thereafter: Creatinine 3.2 (no acidosis or hyperkalemia)
CT scan reveals a markedly distended urinary bladder with posterior diverticulum and marked bilateral hydroureteronephrosis
---
Urine incontinence: likely overflow
Cystoscopy 09/13 revealed a globally trabeculated urinary bladder. No clear evidnece of bladder outlet obstruction was evident (Josh)
---
Prostate cancer s/p radiation therapy roughly five years ago (this facility)
Subjective
-
No events overnight
tolerating spence
Objective
-
Vital Signs
Temp Pulse Resp BP Pulse Ox
97.7 F 74 16 156/96 97
04/11/24 07:00 04/11/24 07:39 04/11/24 07:00 04/11/24 07:39 04/11/24 07:00
Intake and Output
04/10/24 04/11/24 04/12/24
06:59 06:59 06:59
Intake Total 120 / 120 1200 / 1200
Output Total 2200 / 2200 2700 / 2700
Balance -2080 / -2080 -1500 / -1500
Intake:
Oral fluids 120 / 120 1200 / 1200
Output:
Urine, Spence 2200 / 2200 2700 / 2700
Laboratory Results
04/11/24 06:41
04/11/24 06:41
Physical Exam
-
General - well developed, well nourished, no acute distress
Abdomen - soft, non-tender
- spence in place, urine clear red with small clots
[2024-04-11] MEDS: TYLENOL 650 MG PO ×2 (11:47→18:18)
--- NOTE | 2024-04-11 12:01 | W.PN.NEPH.PH ---
Today's Communication / Plan
-
- likely for d/c tomorrow
- Cr falling
Assessment/Plan
-
Assessment
Acute kidney injury
Urinary retention
Bilateral hydronephrosis
Hypertension
Traumatic gross hematuria
Plan
Follow BMP
Maintain Brunner
No MICHELLE inhibitors
Continue amlodipine and metoprolol for hypertension
It is entirely possible that the obstructive uropathy may have been present longer than felt. Therefore recovery after mu-ism of flow may be delayed due to either ATN or more severe renal injury.
-
-
Date of Service: April 11, 2024
CC / HPI / ROS
-
Chief Complaint:
DAVID
History of Present Illness:
Cr peak 2.9, now down to 2.6. continuing Brunenr cath
Review of Systems:
feeling improved
discomfort with urination
Labs
-
Labs:
WBC 5.7 10^3/uL (4.8-10.8) 04/11/24 06:41
RBC 3.96 10^6/uL (4.70-6.10) L 04/11/24 06:41
Hgb 12.7 g/dL (13.0-18.0) L 04/11/24 06:41
Hct 36.2 % (39.0-52.0) L 04/11/24 06:41
Plt Count 258 10^3/uL (130-400) 04/11/24 06:41
Sodium 138 mmol/L (135-145) 04/11/24 06:41
Potassium 4.6 mmol/L (3.5-5.1) 04/11/24 06:41
Chloride 105 mmol/L (98-107) 04/11/24 06:41
Carbon Dioxide 26 mmol/L (22-30) 04/11/24 06:41
BUN 51 mg/dl (9-20) H 04/11/24 06:41
Creatinine 2.6 mg/dL (0.7-1.3) H 04/11/24 06:41
eGFR 25.25 04/11/24 06:41
Glucose 89 mg/dl (70-99) 04/11/24 06:41
Calcium 9.7 mg/dl (8.4-10.2) 04/11/24 06:41
Mlf-Y-Qeincfvndeu Pept 1190 pg/ml 04/07/24 12:08
Albumin 4.2 g/dl (3.5-5.0) 04/07/24 12:08
Physical Exam
-
Vital Signs:
Vital Signs
Temp Pulse Resp BP Pulse Ox
98.2 F 77 18 144/100 94
04/11/24 11:10 04/11/24 11:10 04/11/24 11:10 04/11/24 11:10 04/11/24 11:10
Cardiovascular:: Regular rate and rhythm
Respiratory:: Bilateral: CTA
Abdomen:: Nontender and Soft
Bowel Sounds:: Normal
Extremity Edema:: None: Bilateral:
Brunner Catheter: Yes
[2024-04-11] MEDS: TUMS 1 TABLET PO (18:18)
[2024-04-12] VITALS (8 sets, daily range): BP systolic 132–149; BP diastolic 91–99; PULSE 76; O2SAT 97; BMI 32.7
[2024-04-12 06:38] LABS: % Eosinophils 8.8 % (0-6); % Immature Granulocytes 0.7 % (0-0.5); % Lymphocytes 18.5 % (20.5-51.1); % Monocytes 14.6 % (1.7-9.3); % Neutrophils 56.4 % (42.2-75.2); Absolute Basophils 0.1 10^3/uL (0-0.2); Absolute Eosinophils 0.5 10^3/uL (0-0.7); Absolute Lymphocytes 1.1 10^3/uL (1.2-3.4); Absolute Monocytes 0.9 10^3/uL (0.1-0.6); Absolute Neutrophils 3.4 10^3/uL (1.4-6.5); Hematocrit 34.4 % (39.0-52.0); Hemoglobin 12.2 g/dL (13.0-18.0); Mean Corp Hgb Conc. 35.5 g/dL (33.0-37.0); Mean Corpuscular Hgb 32.4 pg (27.0-31.0); Mean Corpuscular Volume 91.2 fL (80.0-94.0); Mean Platelet Volume 10.4 fL (7.4-10.4); Nucleated Red Blood Cells % 0 % (-); Platelet Count 263 10^3/uL (130-400); Red Blood Cell Count 3.77 10^6/uL (4.70-6.10); Red Cell Dist. Width 12.8 % (11.5-14.5); White Blood Cell Count 5.9 10^3/uL (4.8-10.8)
[2024-04-12 06:43] LABS: Blood Urea Nitrogen 52 mg/dl (9-20); Calcium 9.5 mg/dl (8.4-10.2); Carbon Dioxide 26 mmol/L (22-30); Chloride 104 mmol/L (98-107); Estimated Creatinine Clearance 29 ml/min; Glucose 88 mg/dl (70-99); Potassium 4.4 mmol/L (3.5-5.1); Sodium 136 mmol/L (135-145); eGFR 26.47
[2024-04-12] MEDS: MIRALAX 17 GRAMS PO (08:09)
[2024-04-12] MEDS: NORVASC 5 MG PO (08:10)
[2024-04-12] MEDS: HEPARIN 5000 UNITS SC ×2 (08:11→19:52)
[2024-04-12] MEDS: TOPROL XL 25 MG PO (08:11)
--- NOTE | 2024-04-12 10:01 | W.PN.HOSP.TC ---
Today's Communication/Plan
-
.
Assessment / Plan
Assessment / Plan
Physical Exam
General: No Apparent Distress and Conversant
HEENT: Normocephalic
Respiratory: CTAB
Cardiac: S1/S2 and Regular Rhythm
GI: Soft and Non Tender. Positive bowel sounds.
Genito-urinary: Brunner with red urine
Musculoskeletal: Edema, Left Lower Extremity and Edema, Right Lower Extremity
Skin: Warm and Dry
Neuro: Awake, Alert and AO x 3
Psych: Calm and Intact Judgment/Insight

CT Abdomen Pelvis (as per radiologist's report)
IMPRESSION:
1. Moderate bilateral hydronephrosis and hydroureter with significantly distended urinary bladder which is thickened and trabeculated with large posterior bladder diverticulum. No obstructing stones or soft tissue lesions appreciated. Findings
consistent with bladder outlet obstruction.
2. Mildly enlarged prostate gland with projection of median lobe into the bladder base. No suspicious osteoblastic lesions appreciated. No pelvic lymphadenopathy.
3. Severe degenerative disc disease at L5-S1 with grade 1 anterolisthesis secondary to bilateral pars defects.
4. Additional findings above.
Echocardiogram (as per cardiology report)
CONCLUSIONS
Normal biventricular size and systolic function without regional wall motion
abnormality. Estimated LVEF 60-65%.
Moderate concentric left ventricular hypertrophy.
Mild aortic regurgitation.
Compared to 11/11/17: no significant change.

Assessment/Plan
Acute Kidney Injury, Secondary to Obstruction
Bilateral hydronephrosis and hydroureter with significantly distended urinary bladder
Hematuria
Thickened and trabeculated bladder with large posterior bladder diverticulum
Prostate cancer 5 years ago (follows with urologist Dr. Moreno)
-Continue Brunner Catheter
-Consult urology, recommendations appreciated
-Consult nephrology, recommendations appreciated
-No leukocytosis or fever, monitor for any signs of infection in which case Rocephin can be started
-Bladder scans protocol
-Recheck labs outpatient
-Hold home Enalapril
-Consulted nephrology given lack of significant improvement in creatinine: it's entirely possible that the obstructive uropathy may have been present longer than felt and per nephrology therefore recovery after nondenominational of flow may be delayed due
to either ATN or more severe renal injury
-Per urology, patient is stable for discharge from standpoint with Brunner in place and outpatient follow up with Dr. Moreno to discuss repeat imaging and possible prostate intervention
-repeat CT imaging on 04/10/24 showed bilateral hydronephrosis is stable and not due to any stone or other external compression
-Discussed with urologist Dr. Houston, patient's hematuria is decompression hematuria most likely; Dr. Houston wanted to irrigate his bladder , but patient would not let him but per Dr. Houston, the Brunner catheter is draining fine and there wasn�t clot
on the CT imaging so it�s OK, and patient can be discharged.
Essential Hypertension -- Blood Pressure Improved
-Continue home Metoprolol Succinate
-Continue newly started Amlodipine started this admission
-Per patient's daughter, patient was noted to be on Enalapril Maleate 20 mg BID and HCTZ 25 mg daily (stopped) at home
-Hold Enalapril given impaired renal function
Bilateral Lower Extremity Edema
-Albumin okay
-No DVT
-Given SOB reported checked echocardiogram, results are above
Hyperlipidemia
Stroke in 2016
Prostate cancer 5 years ago (follows with urologist Dr. Moreno)
Alcohol Use
-MSAS protocol
Chronic moderate compression deformity of L1. Severe degenerative disc disease at L5-S1 secondary to bilateral pars defects. Grade 1 anterolisthesis
12 mm cyst within the inferior right lobe
DVT Prophylaxis: Heparin Subq
Code Status: Full Code
automobile accessories salesperson for patient: patient's daughter Tiffany - phone number [phone] -- main contact persons are patient's daughters (phone numbers will be added to patient's chart)
On April 11, 2024 I spoke over the phone to patient's daughter Tiffany, and Tiffany and her family requested to keep patient in the hospital until patient's creatinine improves at least to less than 2.5 in the low 2.
Total time spent to see the patient, examine the patient on the floor, review data and lab results, discuss treatment plan with patient, nursing staff around 55 minutes
Anticipated Discharge: 24 - 48 hours
Subjective/Interval History
-
Date of Service: April 12, 2024
No chest pain
No sob
No fevers
Objective Data
-
Labs:
Laboratory Results
04/12/24
04:48
WBC 5.9
Hgb 12.2 L
Hct 34.4 L
Plt Count 263
Sodium 136
Potassium 4.4
Chloride 104
Carbon Dioxide 26
BUN 52 H
Creatinine 2.5 H
Glucose 88
Calcium 9.5
Vital Signs:
Vital Signs
Temp Pulse Resp BP Pulse Ox
97.8 F 82 18 132/93 97
04/12/24 07:30 04/12/24 08:10 04/12/24 07:30 04/12/24 08:10 04/12/24 07:30
I&O
04/11/24 04/12/24 04/13/24
06:59 06:59 06:59
Intake Total 1200 / 1200 5030 / 5030
Output Total 2700 / 2700 2700 / 2700
Balance -1500 / -1500 2330 / 2330
--- NOTE | 2024-04-12 10:43 | W.PN.URO.CBU ---
Today's Communication / Plan
-
Maintain spence
Outpatient follow up with Dr. Moreno
Assessment / Plan
-
73M hx of prostate cancer s/p radiation
DAVID likely due to acute on chronic obstructive uropathy
Hematuria after catheter placement
Maintain spence
CT 04/10 showed persistent bilateral hydronephrosis. This is likely residual dilation from resolving bladder outlet obstruction. Recommend repeat imaging in a few weeks - may eventually need cystoscopy and evaluation of ureters if it persists
Hematuria resolving, catheter draining. May be due to radiation changes or decompression of distended bladder
Irrigate PRN while inpatient
Trend renal function
F/U nephrology recs
Stable for discharge from standpoint, outpatient follow up with Dr. Moreno for repeat imaging and further workup of voiding dysfunction
Diagnosis
-
Date of Service: April 12, 2024
-
Post Op Day:
Patient Diagnosis:
DAVID likely due to obstructive uropathy: 1.1 liters of urine recovered from bladder when catheter was initially placed, with an additional 900 ml recovered shortly thereafter: Creatinine 3.2 (no acidosis or hyperkalemia)
CT scan reveals a markedly distended urinary bladder with posterior diverticulum and marked bilateral hydroureteronephrosis
---
Urine incontinence: likely overflow
Cystoscopy 09/13 revealed a globally trabeculated urinary bladder. No clear evidnece of bladder outlet obstruction was evident (Josh)
---
Prostate cancer s/p radiation therapy roughly five years ago (this facility)
Objective
-
Vital Signs
Temp Pulse Resp BP Pulse Ox
98.2 F 72 18 143/96 98
04/12/24 10:41 04/12/24 10:41 04/12/24 10:41 04/12/24 10:41 04/12/24 10:41
Intake and Output
04/11/24 04/12/2424
06:59 06:59 06:59
Intake Total 1200 / 1200 5030 / 5030
Output Total 2700 / 2700 2700 / 2700
Balance -1500 / -1500 2330 / 2330
Intake:
Oral fluids 1200 / 1200 5030 / 5030
Output:
Urine, Spence 2700 / 2700 2700 / 2700
Laboratory Results
04/12/24 04:48
04/12/24 04:48
Physical Exam
-
General - well developed, well nourished, no acute distress
Chest - clear bilaterally
Abdomen - soft, non-tender, positive bowel sounds, no CVAT, no incisional pain or distention
Genitalia - normal
Rectal - normal
Skin - warm & dry with no rash
Neuro - AOx3, no motor deficits
Extremities - no clubbing, no cyanosis, no edema
Incision - clean, dry
Dressing - clean, dry, intact
--- NOTE | 2024-04-12 13:02 | CM ---
Patient seen bedside with and daughter, discussed [facility] able to accept patient for when he is stable for discharge. Family requesting pamphlets, any information on [facility]. CM will print information from [facility] website for family.
Patient has been switched to inpatient status, IMM reviewed, signed, placed in chart patient provided with copy. CM will continue to follow for all discharge planning needs.
Plan; [facility]
--- NOTE | 2024-04-12 14:23 | W.PN.NEPH.PH ---
Today's Communication / Plan
-
observe labs
Assessment/Plan
-
Assessment
Acute kidney injury
Urinary retention
Bilateral hydronephrosis
Hypertension
Traumatic gross hematuria
Plan
DAVID-obst uropathy
cr improving slowly at 2.5, non oliguric
spence per , hematuria improving
may need repeat imaging to see if improving hydro-defer to timing, last repeat CT was on 04/10
No MICHELLE inhibitors
Continue amlodipine and metoprolol for hypertension
f/u and renal out pt
renal panel in 1week post d/c
d/w pt and in detail
-
-
Date of Service: April 12, 2024
CC / HPI / ROS
-
Chief Complaint:
DAVID
History of Present Illness:
Cr peak 2.9, now down to 2.5. continuing Spence cath , non oliguric
Review of Systems:
feeling improved
bladder pressure when standing
walked on halways
Labs
-
Labs:
WBC 5.9 10^3/uL (4.8-10.8) 04/12/24 04:48
RBC 3.77 10^6/uL (4.70-6.10) L 04/12/24 04:48
Hgb 12.2 g/dL (13.0-18.0) L 04/12/24 04:48
Hct 34.4 % (39.0-52.0) L 04/12/24 04:48
Plt Count 263 10^3/uL (130-400) 04/12/24 04:48
Sodium 136 mmol/L (135-145) 04/12/24 04:48
Potassium 4.4 mmol/L (3.5-5.1) 04/12/24 04:48
Chloride 104 mmol/L (98-107) 04/12/24 04:48
Carbon Dioxide 26 mmol/L (22-30) 04/12/24 04:48
BUN 52 mg/dl (9-20) H 04/12/24 04:48
Creatinine 2.5 mg/dL (0.7-1.3) H 04/12/24 04:48
eGFR 26.47 04/12/24 04:48
Glucose 88 mg/dl (70-99) 04/12/24 04:48
Calcium 9.5 mg/dl (8.4-10.2) 04/12/24 04:48
Wio-P-Eulovmygylc Pept 1190 pg/ml 04/07/24 12:08
Albumin 4.2 g/dl (3.5-5.0) 04/07/24 12:08
Physical Exam
-
Vital Signs:
Vital Signs
Temp Pulse Resp BP Pulse Ox
98.2 F 72 18 143/96 98
04/12/24 10:41 04/12/24 10:41 04/12/24 10:41 04/12/24 10:41 04/12/24 10:41
Cardiovascular:: Regular rate and rhythm
Respiratory:: Bilateral: CTA
Lung Excursion:: Normal
Abdomen:: Nontender and Soft
Extremity Edema:: None: Bilateral:
Spence Catheter: Yes
--- NOTE | 2024-04-13 02:31 | PTCARENOTE ---
Pt recieved from ED @ 3282. AA&O to room and call darvin.
[2024-04-13 03:00] VITALS: BP 139/95
[2024-04-13 06:00] VITALS: BMI 32.4
[2024-04-13 08:00] VITALS: BP 141/97
[2024-04-13] MEDS: TOPROL XL 25 MG PO (08:13)
[2024-04-13] MEDS: NORVASC 5 MG PO ×2 (08:14→20:14)
[2024-04-13] MEDS: HEPARIN 5000 UNITS SC ×2 (08:14→20:14)
[2024-04-13] MEDS: TYLENOL 650 MG PO ×3 (08:17→21:02)
[2024-04-13 08:52] LABS: Blood Urea Nitrogen 53 mg/dl (9-20); Calcium 9.8 mg/dl (8.4-10.2); Carbon Dioxide 25 mmol/L (22-30); Chloride 103 mmol/L (98-107); Estimated Creatinine Clearance 28 ml/min; Glucose 102 mg/dl (70-99); Potassium 4.5 mmol/L (3.5-5.1); Sodium 137 mmol/L (135-145); eGFR 26.47
--- NOTE | 2024-04-13 09:00 | W.PN.URO.CBU ---
Today's Communication / Plan
-
home tofday if ok with hospitalist
Assessment / Plan
-
73M hx of prostate cancer s/p radiation
DAVID likely due to acute on chronic obstructive uropathy
Hematuria after catheter placement
Maintain spence
CT 04/10 showed persistent bilateral hydronephrosis. This is likely residual dilation from resolving bladder outlet obstruction. Recommend repeat imaging in a few weeks - may eventually need cystoscopy and evaluation of ureters if it persists
Hematuria resolving, catheter draining. May be due to radiation changes or decompression of distended bladder
Irrigate PRN while inpatient
Trend renal function
F/U nephrology recs
Stable for discharge from standpoint, outpatient follow up with Dr. Moreno for repeat imaging and further workup of voiding dysfunction
Diagnosis
-
Date of Service: April 13, 2024
-
Patient Diagnosis:
Post Op Day:
Post Op Day:
Patient Diagnosis:
DAVID likely due to obstructive uropathy: 1.1 liters of urine recovered from bladder when catheter was initially placed, with an additional 900 ml recovered shortly thereafter: Creatinine 3.2 (no acidosis or hyperkalemia)
CT scan reveals a markedly distended urinary bladder with posterior diverticulum and marked bilateral hydroureteronephrosis
---
Urine incontinence: likely overflow
Cystoscopy 09/13 revealed a globally trabeculated urinary bladder. No clear evidnece of bladder outlet obstruction was evident (Josh)
---
Prostate cancer s/p radiation therapy roughly five years ago (this facility)
Subjective
-
no new sxs
Objective
-
Vital Signs
Temp Pulse Resp BP Pulse Ox
97.7 F 80 16 141/97 98
04/13/24 08:00 04/13/24 08:13 04/13/24 08:00 04/13/24 08:13 04/13/24 08:00
Intake and Output
04/12/24 04/13/24 04/14/24
06:59 06:59 06:59
Intake Total 5030 / 5030 1500 / 1500
Output Total 2700 / 2700 4000 / 4000
Balance 2330 / 2330 -2500 / -2500
Intake:
Oral fluids 5030 / 5030 1500 / 1500
Output:
Urine, Spence 2700 / 2700 4000 / 4000
Laboratory Results
04/13/24 08:04
Review of Systems
-
: Difficulty Voiding
Physical Exam
-
General - well developed, well nourished, no acute distress
Chest - clear bilaterally
Abdomen - soft, non-tender, positive bowel sounds, no CVAT, no incisional pain or distention
Genitalia - normal
Rectal - normal
Skin - warm & dry with no rash
Neuro - AOx3, no motor deficits
Extremities - no clubbing, no cyanosis, no edema
Incision - clean, dry
Dressing - clean, dry, intact
Care Review
Data Reviewed
Discussed with: Family
[2024-04-13 09:22] LABS: % Basophils 0.9 % (0-2); % Immature Granulocytes 0.6 % (0-0.5); % Lymphocytes 17.3 % (20.5-51.1); % Monocytes 13.2 % (1.7-9.3); Absolute Basophils 0.1 10^3/uL (0-0.2); Absolute Eosinophils 0.5 10^3/uL (0-0.7); Absolute Lymphocytes 1.2 10^3/uL (1.2-3.4); Absolute Monocytes 0.9 10^3/uL (0.1-0.6); Absolute Neutrophils 4.1 10^3/uL (1.4-6.5); Hematocrit 35.9 % (39.0-52.0); Hemoglobin 12.6 g/dL (13.0-18.0); Mean Corp Hgb Conc. 35.1 g/dL (33.0-37.0); Mean Corpuscular Hgb 31.2 pg (27.0-31.0); Mean Corpuscular Volume 88.9 fL (80.0-94.0); Mean Platelet Volume 9.8 fL (7.4-10.4); Nucleated Red Blood Cells % 0 % (-); Platelet Count 322 10^3/uL (130-400); Red Blood Cell Count 4.04 10^6/uL (4.70-6.10); Red Cell Dist. Width 12.7 % (11.5-14.5); White Blood Cell Count 6.8 10^3/uL (4.8-10.8)
[2024-04-13] MEDS: MIRALAX 17 GRAMS PO (10:18)
[2024-04-13 11:00] VITALS: BP 144/86
--- NOTE | 2024-04-13 11:19 | W.PN.HOSP.TC ---
Today's Communication/Plan
-
dc planning
Assessment / Plan
Assessment / Plan
Physical Exam
General: No Apparent Distress and Conversant
HEENT: Normocephalic
Respiratory: CTAB
Cardiac: S1/S2 and Regular Rhythm
GI: Soft and Non Tender. Positive bowel sounds.
Genito-urinary: Brunner with red urine
Musculoskeletal: Edema, Left Lower Extremity and Edema, Right Lower Extremity
Skin: Warm and Dry
Neuro: Awake, Alert and AO x 3
Psych: Calm and Intact Judgment/Insight

CT Abdomen Pelvis (as per radiologist's report)
IMPRESSION:
1. Moderate bilateral hydronephrosis and hydroureter with significantly distended urinary bladder which is thickened and trabeculated with large posterior bladder diverticulum. No obstructing stones or soft tissue lesions appreciated. Findings
consistent with bladder outlet obstruction.
2. Mildly enlarged prostate gland with projection of median lobe into the bladder base. No suspicious osteoblastic lesions appreciated. No pelvic lymphadenopathy.
3. Severe degenerative disc disease at L5-S1 with grade 1 anterolisthesis secondary to bilateral pars defects.
4. Additional findings above.
Echocardiogram (as per cardiology report)
CONCLUSIONS
Normal biventricular size and systolic function without regional wall motion
abnormality. Estimated LVEF 60-65%.
Moderate concentric left ventricular hypertrophy.
Mild aortic regurgitation.
Compared to 11/11/17: no significant change.

Assessment/Plan
Acute Kidney Injury, Secondary to Obstruction
Bilateral hydronephrosis and hydroureter with significantly distended urinary bladder
Hematuria
Thickened and trabeculated bladder with large posterior bladder diverticulum
Prostate cancer 5 years ago (follows with urologist Dr. Moreno)
-Continue Brunner Catheter
-Consult urology, recommendations appreciated
-Consult nephrology, recommendations appreciated
-No leukocytosis or fever, monitor for any signs of infection in which case Rocephin can be started
-Bladder scans protocol
-Recheck labs outpatient
-Hold home Enalapril
-Consulted nephrology given lack of significant improvement in creatinine: it's entirely possible that the obstructive uropathy may have been present longer than felt and per nephrology therefore recovery after zoroastrian of flow may be delayed due
to either ATN or more severe renal injury
-Per urology, patient is stable for discharge from standpoint with Brunner in place and outpatient follow up with Dr. Moreno to discuss repeat imaging and possible prostate intervention
-repeat CT imaging on 04/10/24 showed bilateral hydronephrosis is stable and not due to any stone or other external compression
-Discussed with urologist Dr. Houston, patient's hematuria is decompression hematuria most likely; Dr. Houston wanted to irrigate his bladder , but patient would not let him but per Dr. Houston, the Brunner catheter is draining fine and there wasn�t clot
on the CT imaging so it�s OK, and patient can be discharged.
Essential Hypertension - slightly uncontrolled
Increased amlodipine to 5 mg BID.
-Continue home Metoprolol Succinate
-Per patient's daughter, patient was noted to be on Enalapril Maleate 20 mg BID and HCTZ 25 mg daily (stopped) at home
-Stopped HCTZ and enalapril given impaired renal function
Bilateral Lower Extremity Edema
-Albumin okay
-No DVT
-Given SOB reported checked echocardiogram, results are above
Hyperlipidemia
Stroke in 2016
Prostate cancer 5 years ago (follows with urologist Dr. Moreno)
Alcohol Use
-MSAS protocol
Chronic moderate compression deformity of L1. Severe degenerative disc disease at L5-S1 secondary to bilateral pars defects. Grade 1 anterolisthesis
12 mm cyst within the inferior right lobe
DVT Prophylaxis: Heparin Subq
Code Status: Full Code
d/w Meaghan and daughter Tiffany.
Total time spent to see the patient, examine the patient on the floor, review data and lab results, discuss treatment plan with patient, nursing staff around 55 minutes
Anticipated Discharge: Within 24 hours
Subjective/Interval History
-
Date of Service: April 13, 2024
Doing well
No pain issues
Objective Data
-
Labs:
Laboratory Results
04/13/24
08:04
WBC 6.8
Hgb 12.6 L
Hct 35.9 L
Plt Count 322 D
Sodium 137
Potassium 4.5
Chloride 103
Carbon Dioxide 25
BUN 53 H
Creatinine 2.5 H
Glucose 102 H
Calcium 9.8
Vital Signs:
Vital Signs
Temp Pulse Resp BP Pulse Ox
97.7 F 80 16 141/97 98
04/13/24 08:00 04/13/24 08:13 04/13/24 08:00 04/13/24 08:13 04/13/24 08:00
I&O
04/12/24 04/13/24 04/14/24
06:59 06:59 06:59
Intake Total 5030 / 5030 1500 / 1500
Output Total 2700 / 2700 4000 / 4000
Balance 2330 / 2330 -2500 / -2500
--- NOTE | 2024-04-13 12:49 | CM ---
Patient seen ambulating halls with walker. CM met with patients and patients sister in law bedside. requesting the [facility] contact her for scheduling visits upon discharge. CM provided update in [facility], spoke with [facility] to provide update on patients discharge, they are reviewing staffing, will inform CM of when they can start care, will update CM through [facility]. CM will continue to follow for all discharge planning needs.
Plan; home with [facility], patient will need walker/script upon discharge.
[2024-04-13 15:35] VITALS: BP 133/92
--- NOTE | 2024-04-13 17:22 | W.PN.NEPH.PH ---
Today's Communication / Plan
-
see plan
Assessment/Plan
-
Assessment
Acute kidney injury
Urinary retention
Bilateral hydronephrosis
Hypertension
Traumatic gross hematuria
Plan
DAVID-obst uropathy
cr improving slowly stable at 2.5,
increased UOP possible post obst diuresis,increase PO intake
spence per , hematuria improving
may need repeat imaging to see if improving hydro-defer to timing, last repeat CT was on 04/10
No MICHELLE inhibitors
Continue amlodipine and metoprolol for hypertension
f/u and renal out pt
renal panel in 1week post d/c
d/w pt and in detail
-
-
Date of Service: April 13, 2024
CC / HPI / ROS
-
Chief Complaint:
DAVID
History of Present Illness:
Cr peak 2.9, no change at 2.5. continuing Spence cath ,
UOP increasing
Review of Systems:
feeling improved, no pain today
walked on halways
Labs
-
Labs:
WBC 6.8 10^3/uL (4.8-10.8) 04/13/24 08:04
RBC 4.04 10^6/uL (4.70-6.10) L 04/13/24 08:04
Hgb 12.6 g/dL (13.0-18.0) L 04/13/24 08:04
Hct 35.9 % (39.0-52.0) L 04/13/24 08:04
Plt Count 322 10^3/uL (130-400) D 04/13/24 08:04
Sodium 137 mmol/L (135-145) 04/13/24 08:04
Potassium 4.5 mmol/L (3.5-5.1) 04/13/24 08:04
Chloride 103 mmol/L (98-107) 04/13/24 08:04
Carbon Dioxide 25 mmol/L (22-30) 04/13/24 08:04
BUN 53 mg/dl (9-20) H 04/13/24 08:04
Creatinine 2.5 mg/dL (0.7-1.3) H 04/13/24 08:04
eGFR 26.47 04/13/24 08:04
Glucose 102 mg/dl (70-99) H 04/13/24 08:04
Calcium 9.8 mg/dl (8.4-10.2) 04/13/24 08:04
Laq-T-Yxcmfidbfnu Pept 1190 pg/ml 04/07/24 12:08
Albumin 4.2 g/dl (3.5-5.0) 04/07/24 12:08
Physical Exam
-
Vital Signs:
Vital Signs
Temp Pulse Resp BP Pulse Ox
98.1 F 68 16 133/92 98
04/13/24 15:35 04/13/24 15:35 04/13/24 15:35 04/13/24 15:35 04/13/24 15:35
Cardiovascular:: Regular rate and rhythm
Respiratory:: Bilateral: CTA
Lung Excursion:: Normal
Abdomen:: Nontender and Soft
Extremity Edema:: None: Bilateral:
Spence Catheter: Yes
[2024-04-13] MEDS: TUMS 1 TABLET PO (20:19)
[2024-04-13 23:07] VITALS: BP 135/71
[2024-04-14 05:02] VITALS: BMI 32.6
[2024-04-14 07:00] VITALS: BP 124/76
[2024-04-14] MEDS: TOPROL XL 25 MG PO (09:07)
[2024-04-14] MEDS: NORVASC 5 MG PO (09:08)
[2024-04-14] MEDS: MIRALAX PO ×2 (09:08→09:17)
[2024-04-14] MEDS: HEPARIN 5000 UNITS SC (09:08)
[2024-04-14] MEDS: TYLENOL 650 MG PO (09:20)
[2024-04-14] MEDS: TUMS 1 TABLET PO (09:20)
--- NOTE | 2024-04-14 09:32 | W.PN.URO.CBU ---
Today's Communication / Plan
-
home with spence
Assessment / Plan
-
73M hx of prostate cancer s/p radiation
DAVID likely due to acute on chronic obstructive uropathy
Hematuria after catheter placement
Maintain spence
CT 04/10 showed persistent bilateral hydronephrosis. This is likely residual dilation from resolving bladder outlet obstruction. Recommend repeat imaging in a few weeks - may eventually need cystoscopy and evaluation of ureters if it persists
Hematuria resolving, catheter draining. May be due to radiation changes or decompression of distended bladder
Irrigate PRN while inpatient
Trend renal function
F/U nephrology recs
Stable for discharge from standpoint, outpatient follow up with Dr. Moreno for repeat imaging and further workup of voiding dysfunction
Diagnosis
-
Date of Service: April 14, 2024
-
Patient Diagnosis:
Post Op Day:
Patient Diagnosis:
Post Op Day:
Post Op Day:
Patient Diagnosis:
DAVID likely due to obstructive uropathy: 1.1 liters of urine recovered from bladder when catheter was initially placed, with an additional 900 ml recovered shortly thereafter: Creatinine 3.2 (no acidosis or hyperkalemia)
CT scan reveals a markedly distended urinary bladder with posterior diverticulum and marked bilateral hydroureteronephrosis
---
Urine incontinence: likely overflow
Cystoscopy 09/13 revealed a globally trabeculated urinary bladder. No clear evidnece of bladder outlet obstruction was evident (Josh)
---
Prostate cancer s/p radiation therapy roughly five years ago (this facility)
Subjective
-
no complaints
Objective
-
Vital Signs
Temp Pulse Resp BP Pulse Ox
97.9 F 70 14 124/76 96
04/14/24 07:00 04/14/24 09:07 04/14/24 07:00 04/14/24 09:08 04/14/24 07:00
Intake and Output
04/13/24 04/14/24 04/15/24
06:59 06:59 06:59
Intake Total 1500 / 1500 240 / 240 480 / 480
Output Total 4000 / 4000 2000 / 2000 700 / 700
Balance -2500 / -2500 -1760 / -1760 -220 / -220
Intake:
Oral fluids 1500 / 1500 240 / 240 480 / 480
Output:
Urine, Spence 4000 / 4000 2000 / 2000 700 / 700
Laboratory Results
04/13/24 08:04
Review of Systems
-
: Difficulty Voiding
Physical Exam
-
General - well developed, well nourished, no acute distress
Chest - clear bilaterally
Abdomen - soft, non-tender, positive bowel sounds, no CVAT, no incisional pain or distention
Genitalia - normal
Rectal - normal
Skin - warm & dry with no rash
Neuro - AOx3, no motor deficits
Extremities - no clubbing, no cyanosis, no edema
Incision - clean, dry
Dressing - clean, dry, intact
Care Review
Data Reviewed
Discussed with: Hospitalist and Family
--- NOTE | 2024-04-14 10:33 | W.DCSUMMARY ---
Discharge Summary
Discharge Data
Date of Admission: 04/07/24
Date of Discharge: 04/14/24
-
Pending Results: No
Hospital Course
73-year-old male who presented with abnormal blood work. Patient presented with acute kidney injury. Creatinine was 3.28. Scan of the abdomen & pelvis shows severe bilateral hydronephrosis, hydroureter, large posterior bladder diverticulum).
Spence catheter was inserted with return of 1.9 L of urine. Patient was seen by urologist and manufacturing process technician. Spence catheter was maintained with as needed order for irrigation. Patient developed hematuria after Spence catheter insertion and was
diagnosed with traumatic hematuria. Blood pressure was noted to be uncontrolled and was started amlodipine with good improvement. Patient was ultimately diagnosed with obstructive uropathy. Urology doctor recommended to maintain Spence and
outpatient follow-up for repeat imaging studies and possible cystoscopy. Hematuria resolved and hemoglobin remained stable around 11-12. Patient did not have fever or leukocytosis. Patient remained hemodynamically stable and was discharged home
with home care services in a stable condition. Patient was given a prescription to repeat the blood work within a week. Patient was advised to follow-up with his a primary care doctor, manufacturing process technician and urologist Dr. Moreno.
Physical Exam
General: No Apparent Distress and Conversant
HEENT: Normocephalic
Respiratory: CTAB
Cardiac: S1/S2 and Regular Rhythm
GI: Soft and Non Tender. Positive bowel sounds.
Genito-urinary: Spence with red urine
Musculoskeletal: no Edema, Left Lower Extremity and no , Right Lower Extremity
Skin: Warm and Dry
Neuro: Awake, Alert and AO x 3
Psych: Calm and Intact Judgment/Insight
Total discharge time spent to see the patient, examine the patient on the floor, review data and lab results, discuss discharge plan with patient, manufacturing process technician, case assembler, nursing staff around 73 minutes
Discharge Plan
-
Patient Disposition: Home with Home Care
Discharge Diagnosis/Procedures: -Acute kidney injury likely due to acute on chronic obstructive uropathy
You are followed by urologist and manufacturing process technician. Maintain Spence and continue regular Spence care.
You will need to do blood work in 1 week.
-Essential hypertension. Your blood pressure was uncontrolled. You are started on new medicine called amlodipine and your blood pressure improved.
Amlodipine is a calcium channel beltran, potential side effects include hypertension, ankle edema.
Diet: As tolerated
Blood Work: BMP in one week
Instructions: How to Care for Your Spence Catheter, Male, Lowering the risk of a catheter-associated urinary tract infection
Referrals:
Mynor Moreno MD [Active] - (call Dr Moreno [phone] to set up next phase of treatment tell dolly operator that you need to schedule urodynamics and you need a separte appt to dicuss spence care)
Boy Richardson MD [Family Provider] - in one to two weeks
Emmanuelle Mendoza MD [Active] - in two to three weeks
Prescriptions:
New
amlodipine 10 mg tablet
10 mg PO DAILY Qty: 30 0RF
Continued
metoprolol succinate [Toprol XL] 25 mg Tablet Extended Release 24 Hr
25 mg PO DAILY
red yeast rice 600 mg Tablet
1,200 mg PO BID
Discharge Orders:
Discharge Patient (As Directed); Ordered 04/14/24
Ordered By: Fredi Tamayo
Discharge Date and Time
Print Language: CROATIAN
--- NOTE | 2024-04-14 11:09 | CM ---
Addendum entered by Kellie Sanchez 04/14/24 12:16:
[facility]
Original Note:
Patient seen bedside with , discussed plan for discharge today. CM discussed referral made to [facility], able to accept patient, [facility] was unable to give CM a start date. reports she has spoken to PT and
nursing from [facility] regarding a schedule and are agreeable to their services. Script for walker obtained, patient will need walker prior to discharge. IMM reviewed, signed, placed in chart. CM will continue to follow for all discharge
planning needs.
Plan; home with [facility], walker provided from PT.
[2024-04-14 11:25] LABS: Blood Urea Nitrogen 54 mg/dl (9-20); Calcium 9.6 mg/dl (8.4-10.2); Carbon Dioxide 25 mmol/L (22-30); Chloride 100 mmol/L (98-107); Estimated Creatinine Clearance 28 ml/min; Glucose 119 mg/dl (70-99); Potassium 4.4 mmol/L (3.5-5.1); Sodium 133 mmol/L (135-145); eGFR 26.47
== END 2024-04-14 12:23 | disposition home health service (06) | DRG 683 ==
LOC: 4 WEST ACU 11:48
PROVIDERS: Emergency Medicine; Physician Assistant; ADMITTING PHYSICIAN Hospitalist; ATTENDING PHYSICIAN Internal Medicine; CONSULT PHYSICIAN Specialist; EMERGENCY PHYSICIAN Student in an Organized Health Care Education/Training Program; FAMILY PHYSICIAN Family Medicine
DX: N17.9 Acute kidney failure, unspecified (principal); T83.83XA Hemorrhage due to genitourinary prosthetic devices, implants and grafts, initial encounter; N13.30 Unspecified hydronephrosis; N32.3 Diverticulum of bladder; N39.41 Urge incontinence; R33.8 Other retention of urine; I10 Essential (primary) hypertension; R35.0 Frequency of micturition; E78.5 Hyperlipidemia, unspecified; R60.0 Localized edema; R31.0 Gross hematuria; Y73.2 Prosthetic and other implants, materials and accessory gastroenterology and urology devices associated with adverse incidents; Z86.73 Personal history of transient ischemic attack (TIA), and cerebral infarction without residual deficits; Z92.3 Personal history of irradiation; Z85.46 Personal history of malignant neoplasm of prostate; Z87.891 Personal history of nicotine dependence; Z79.899 Other long term (current) drug therapy
CPT/HCPCS: 74176; 76775; 80048; 80053; 81003; 81015; 82570; 83735; 83880; 84300; 85014; 85018; 85025; 87040; 87086; 93005; 93306; 93970; 96374; 97116; 97162; 97166; 97530; 97535; 99285